=== PATIENT | male | born 1945 | race Caucasian/White ===

== ENCOUNTER 2016-03-07 16:56 | Inpatient (IN) | payer OTHER ==
[~2016-03-07] VITALS: Ht 167.6 cm; Wt 115.5 kg
[~2016-03-07 16:56] MED LIST: AMLO-114 PO; ASPEC325 PO; ATEN50TA8 PO; GLC500 PO; LISI-729 PO; MOME100A INH; OMEG10007 PO; PANT40TA PO; SIMV20TA2 PO; TIOTCAP INH
[2016-03-07 17:09] VITALS: Ht 167.6 cm; Wt 115.5 kg
[2016-03-07] MEDS ORDERED: ALBUT/IPRATROP 3MG/0.5MG NEB 3 ML VIAL INH STA (18:21)
--- NOTE | 2016-03-07 18:41 | DIAGNOSTIC IMAGING REPORT ---
CHEST ONE VIEW PORTABLE HISTORY: Atypical CHEST PAIN COMPARISON: Chest 10/07/2013. FINDINGS: There are low lung volumes. This remains unchanged. No pleural effusions. No pneumothorax. No new focal lung consolidations. The heart remains mildly enlarged. Hazy appearance the left lung base remains stable. This may be due to prominent mediastinal fat or scarring. Mild apical predominant emphysematous changes. IMPRESSION: No significant change compared to the prior study. No acute process. Stable cardiomegaly. Electronically signed by: Frederick Tran M.D. 03/07/2016 6:39 PM
--- NOTE | 2016-03-07 18:45 | EMERGENCY ROOM VISIT NOTE ---
History Report prepared by Heather: Subhash Santiago Under the Supervision of: Dr. Reginald Braun M.D. First contact with patient: 18:11 Chief Complaint: RESPIRATORY PROBLEMS Stated Complaint: SOB Nursing Triage Summary: SOB, sent by a ALLISON from [place] for low 02 sats. Denies resp history. Cough. History of Present Illness The patient is a 70 year old male who presents to the Emergency Room with complaints of persistent shortness of breath beginning a few weeks ago. He states that his shortness of breath is worsened with exertion and improved with supplemental oxygen. He has no history of respiratory problems. The patient denies any chest pain, fevers, chills, black or bloody stool, or cough. He states that he was found to have a blood oxygen saturation in the 80's in the office today. He notes that he currently has a stomach ulcer. He states that he has been using inhalers at home. The patient has a history of bladder cancer, a previous SD, and has an urostomy in place. He states that he is currently cancer free. He had his prostate, and bladder removed due to the cancer. The patient denies any recent falls or trauma. Source of History: patient, spouse/significant other Onset: A few weeks ago Quality: other (shortness of breath) Timing: other (persistent) Modifying Factors (Worsening): exertion Modifying Factors (Relieving): other (supplemental oxygen) Associated Symptoms: No chest pain, No chills, No cough, No fevers, No hematochezia, No melena Review of Systems See HPI for pertinent positives & negatives. A total of 10 systems reviewed and were otherwise negative. Past Medical & Surgical Medical Problems: (1) Bladder cancer (2) HTN (hypertension) (3) Myocardial infarction Surgical Problems: (1) History of urostomy Old medical records were reviewed. Nurse's notes were reviewed and I agree with. Family History No pertinent family history stated. Social History Smoking Status: Former Smoker Drug Use: none Marital Status: Occupation Status: retired Current/Historical Medications Scheduled Amlodipine (Norvasc), 10 MG PO QAM Aspirin (Aspirin *), 325 MG PO QAM Atenolol (Tenormin), 50 MG PO QAM Fish Oil ([place]-3), 4 CAP PO QAM Lisinopril (Zestril), 5 MG PO QAM Metformin Hcl (Glucophage *), 500 MG PO BIDM Pantoprazole (Protonix), 40 MG PO DAILY Simvastatin (Zocor), 20 MG PO QPM Tiotropium [place] (Spiriva Handihaler), 1 CAP INH QAM Scheduled PRN Mometasone Furoate-Formoterol (Dulera 100/5 Mcg), 2 PUFFS INH BID PRN for Shortness of Breath Allergies Coded Allergies: Iodinated Diagnostic Agents (Verified Allergy, Mild, itching in groin area , 03/07/16) Penicillins (Verified Adverse Reaction, Unknown, OUT OF IT, 03/07/16) Physical Exam Vital Signs Date Time Temp Pulse Resp B/P Pulse Ox O2 Delivery O2 Flow Rate FiO2 03/07/16 20:04 64 18 131/66 95 Nasal Cannula 2.0 03/07/16 17:13 Nasal Cannula 2.0 03/07/16 17:12 88 Room Air 03/07/16 17:09 37.0 59 18 135/73 88 Room Air Physical Exam General: Well developed, well nourished, non-ill appearing older male in no acute distress, breathing comfortably on room air. Normal speech HEENT: Normal cephalic atraumatic. Pupils are equal round and reactive to light. Extraocular movements are intact. Oropharynx is pink with moist mucous membranes. No swelling of the mouth lips or tongue. Neck: Supple with a midline trachea. No meningeal signs or stiffness, no JVD or bruits. No Stridor. Chest: Clear to auscultation bilaterally. No wheezes or rhonchi. No increased work of breathing. Heart: regular rate and rhythm. Abdomen: Soft nontender, nondistended without rebound guarding or rigidity. Urinary ostomy in place. Extremities: No cyanosis or clubbing. No calf tenderness or assymetry. Trace to 1+ lower extremity edema bilaterally. Spine/Back. Non tender to palpation. No CVA tenderness Skin: Good turgor without rashes. Neurologic exam: Cranial nerves two through 12 are intact. Motor and sensation are intact and symmetrical throughout. Medical Decision & Procedures ER Provider Diagnostic Interpretation: X ray results as stated below per my interpretation and radiologist interpretation. Other radiology results as stated below per my review and radiologist interpretation: CHEST ONE VIEW PORTABLE FINDINGS: There are low lung volumes. This remains unchanged. No pleural effusions. No pneumothorax. No new focal lung consolidations. The heart remains mildly enlarged. Hazy appearance the left lung base remains stable. This may be due to prominent mediastinal fat or scarring. Mild apical predominant emphysematous changes. IMPRESSION: No significant change compared to the prior study. No acute process. Stable cardiomegaly. Electronically signed by: Frederick Tran M.D. MY IMPRESSION: Cardiomegaly, chronic change. No acute infiltrate, failure or pneumothorax. CHEST CTA for PULMONARY ARTERIES FINDINGS: There is a normal caliber thoracic aorta with no evidence for dissection. There is no evidence for pulmonary embolus. Mild mediastinal and right hilar lymphadenopathy has slightly progressed. Dominant right peritracheal lymph node measures 2.4 x 1.4 cm. No pleural or pericardial effusions. The heart is borderline enlarged. The visualized liver and spleen are unremarkable. The central airways are patent. No pneumothorax. Moderate emphysema. A 5 mm indeterminate pulmonary nodule within the left upper lobe on image 158. Mild interstitial thickening within the lungs most prominent within the lung bases. Patchy densities at the base of the bilateral lower lobes may represent dependent change or progressive interstitial thickening. IMPRESSION: 1. No evidence for pulmonary embolus. 2. Moderate emphysema. 3. Progressive interstitial thickening within the lungs most pronounced at the lung bases. There is also patchy densities at the bases of the bilateral lower lobes. This favors progressive chronic interstitial change/fibrosis. An atypical pneumonitis could also have a similar appearance but is considered less likely. 4. A 5 mm indeterminate pulmonary nodule within the left upper lobe. Please refer to the chart below for recommended follow-up. 6. Mild mediastinal and right hilar lymphadenopathy which has progressed. This is nonspecific but could be reactive or represent a lymphoproliferative disorder. Follow-up is recommended to ensure resolution. Please refer to below summary of Fleischner criteria recommendations for follow-up of incidental CT nodules (Gerald Hall, Guidelines for management of small pulmonary nodules detected on CT scans: A statement from the Fleischner Society, Radiology 237: [phone].) Low Risk Patient: Minimal or no smoking or other known risk factors for malignancy <=4 mm: No follow-up needed. >4-6 mm: Initial follow-up CT at 12 months; if unchanged, no further follow-up. >6-8 mm: Initial follow-up CT at 6-12 months then at 18-24 months if no change. >8 mm: Follow-up CT at \R\3, 9, 24 months, or PET and/or biopsy. High Risk Patient: History of smoking or other known risk factors <=4 mm: Follow-up at 12 months; if unchanged, no further follow-up. >4-6 mm: Initial follow-up CT at 6-12 months then at 18-24 months if no change. >6-8 mm: Initial follow-up CT at 3-6 months then at 9-12 and 24 months if no change. >8 mm: Same as low risk patient. Note: Nodule size measured as average of length and width. Ground glass or partly solid nodules may require longer follow-up to exclude indolent adenocarcinoma. Electronically signed by: Frederick Tran M.D. Laboratory Results 03/07/16 19:30 Red Blood Count 4.38, Mean Corpuscular Volume 83.6, Mean Corpuscular Hemoglobin 25.6, Mean Corpuscular Hemoglobin Concent 30.6, Mean Platelet Volume 9.3, Neutrophils (%) (Auto) 75.9, Lymphocytes (%) (Auto) 15.1, Monocytes (%) (Auto) 6.7, Eosinophils (%) (Auto) 1.7, Basophils (%) (Auto) 0.4, Neutrophils # (Auto) 6.08, Lymphocytes # (Auto) 1.21, Monocytes # (Auto) 0.54, Eosinophils # (Auto) 0.14, Basophils # (Auto) 0.03 03/07/16 19:30 Test 03/07/16 19:30 03/07/16 19:38 03/07/16 19:41 White Blood Count 8.02 K/uL (4.8-10.8) Red Blood Count 4.38 M/uL (4.7-6.1) Hemoglobin 11.2 g/dL (14.0-18.0) Hematocrit 36.6 % (42-52) Mean Corpuscular Volume 83.6 fL (80-100) Mean Corpuscular Hemoglobin 25.6 pg (25-34) Mean Corpuscular Hemoglobin Concent 30.6 g/dl (32-36) Platelet Count 270 K/uL (130-400) Mean Platelet Volume 9.3 fL (7.4-10.4) Neutrophils (%) (Auto) 75.9 % Lymphocytes (%) (Auto) 15.1 % Monocytes (%) (Auto) 6.7 % Eosinophils (%) (Auto) 1.7 % Basophils (%) (Auto) 0.4 % Neutrophils # (Auto) 6.08 K/uL (1.4-6.5) Lymphocytes # (Auto) 1.21 K/uL (1.2-3.4) Monocytes # (Auto) 0.54 K/uL (0.11-0.59) Eosinophils # (Auto) 0.14 K/uL (0-0.5) Basophils # (Auto) 0.03 K/uL (0-0.2) RDW Standard Deviation 47.3 fL (36.4-46.3) RDW Coefficient of Variation 15.5 % (11.5-14.5) Immature Granulocyte % (Auto) 0.2 % Immature Granulocyte # (Auto) 0.02 K/uL (0.00-0.02) Prothrombin Time 10.7 SECONDS (9.0-12.0) Prothromb Time International Ratio 1.0 (0.9-1.1) Activated Partial Thromboplast Time 26.9 SECONDS (21.0-31.0) Partial Thromboplastin Ratio 1.0 Est Creatinine Clear Calc Drug Dose 63.0 ml/min Estimated GFR () 64.1 Estimated GFR (Non- 55.3 BUN/Creatinine Ratio 12.1 (10-20) Calcium Level 8.6 mg/dl (8.5-10.1) Total Bilirubin 1.3 mg/dl (0.2-1) Direct Bilirubin 0.2 mg/dl (0-0.2) Aspartate Amino Transf (AST/SGOT) 23 U/L (15-37) Alanine Aminotransferase (ALT/SGPT) 17 U/L (12-78) Alkaline Phosphatase 86 U/L (45-117) Total Creatine Kinase 61 U/L (39-308) Creatine Kinase MB < 0.5 ng/ml (0.5-3.6) Creatine Kinase MB Ratio (0-3.0) Total Protein 7.1 gm/dl (6.4-8.2) Albumin 3.3 gm/dl (3.4-5.0) Lipase 120 U/L (73-393) Bedside Hemoglobin 12.6 g/dl (14.0-18.0) Bedside Hematocrit 37 % (42-52) Bedside Sodium 144 mEq/L (135-144) Bedside Potassium 3.9 mEq/L (3.3-5.0) Bedside Chloride 105 mEq/L (101-112) Bedside Total CO2 23 mEq/l (24-31) Anion Gap 21.0 mmol/L (16-25) Bedside Blood Urea Nitrogen 14 mg/dl (7-18) Bedside Creatinine 1.2 mg/dl (0.6-1.3) Bedside Glucose (other) 96 mg/dl (70-99) Bedside Ionized Calcium (Eduard) 1.15 mmol/l (1.12-1.32) Bedside D-Dimer > 450 ng/mlFEU (0-450) Bedside Troponin I 0.000 ng/ml (0-0.045) UO-Ddz-K-Type Natriuretic Peptide 284 pg/ml (0-900) Laboratory studies as stated above per my review. Medications Administered Medications (Trade) Dose Ordered Sig/Priyanka Route Start Time Stop Time Status Last Admin Dose Admin Albuterol/ Ipratropium (Duoneb) 3 ml NOW STAT INH 03/07/16 18:21 03/07/16 18:24 DC 03/07/16 18:29 3 ML ECG Indication: SOB/dyspnea Rate (beats per minute): 60 Rhythm: normal sinus Findings: nonspecific-ST abn, other (no arrhythmia) Comparison ECG Date: August 05, 2007 Change: Non-specific ST abnormality is new. ED Course 1811: Past medical records reviewed. The patient was evaluated in room C6, and a complete history and physical examination were performed. 1820: Ordered DuoNeb 3 mL INH. 1904: Ordered Benadryl Inj 25 mg IV, Solu-Medrol 40 mg IM. 1930: Upon reevaluation, the patient is resting comfortably. I discussed the results and treatment plan with the patient. He verbalized agreement of the treatment plan. The patient will be evaluated for further management. 2049: I checked in on the patient. He just received his CT without difficulty. Medical Decision Differentials include, but are not limited to; COPD exacerbation, pneumonia, CHF , PE, anemia, and electrolyte or metabolic abnormality. This patient comes in as described above. He was placed in room C6. Here for treatment and evaluation of shortness of breath. This is been getting increasingly worse over quite some time now. He was noted be hypoxemic in the office. He does use inhalers. He looks fine at present and his lungs are clear. He was noted be hypoxemic was placed on oxygen. Chest x-ray was unremarkable. EKG does not suggest any significant arrhythmia or acute ischemic changes. He has no significant electrode or metabolic abnormalities. I did a chest CT there was no evidence of PE. There is likely interstitial lung disease no definite infiltrate. I do think he needs to be admitted for further treatment and evaluations hypoxemia this may be infectious as well. Cultures have been obtained. Of note, he did have a possible contrast allergy however did well with the IV contrast and had no reaction. I did consult the [facility] hospitalist and they saw him and will admit him for these measures Consults Time Called: 1924 Consulting Physician: Dr. Yost [place] [place] Returned Call: 1930 I discussed the patient's case with Dr. Yost. The patient will be evaluated for further management. Impression Primary Impression: Shortness of breath Additional Impression: COPD exacerbation Scribe Attestation The scribe's documentation has been prepared under my direction and personally reviewed by me in its entirety. I confirm that the note above accurately reflects all work, treatment, procedures, and medical decision making performed by me. Departure Information Dispostion Being Evaluated By Hospitalist Referrals Harris Quiñonez M.D. (PCP) Patient Instructions A Signature Page, My [facility]
[2016-03-07] MEDS ORDERED: DiphenhydrAMINE HCL 50 MG/ML VIAL IV STA (19:05)
[2016-03-07] MEDS ORDERED: OPTIRAY 320 IV PRN (19:30)
[2016-03-07 19:46] LABS: BASO % 0.4 %; BASO ABS # 0.03 K/uL (0-0.2); COMPLETE YES; EOS % 1.7 %; HEMATOCRIT 36.6 % (42-52); IG% 0.2 %; LYMPH % 15.1 %; LYMPH ABS # 1.21 K/uL (1.2-3.4); MEAN CELL VOLUME 83.6 fL (80-100); MEAN CORPUSCULAR HEMOGLOBIN 25.6 pg (25-34); MEAN CORPUSCULAR HGB CONC 30.6 g/dl (32-36); MEAN PLATELET VOLUME 9.3 fL (7.4-10.4); MONO % 6.7 %; NEUT % 75.9 %; PLATELET COUNT 270 K/uL (130-400); RED BLOOD COUNT 4.38 M/uL (4.7-6.1); WHITE BLOOD COUNT 8.02 K/uL (4.8-10.8)
[2016-03-07 20:03] LABS: BUN/CREATININE RATIO 12.1 (10-20); CALCIUM 8.6 mg/dl (8.5-10.1); CREATININE 1.3 mg/dl (0.60-1.40)
[2016-03-07 20:04] LABS: POINT OF CARE PRO-BNP 284 pg/ml (0-900)
[2016-03-07 20:05] LABS: PROTHROMBIN TIME (PATIENT) 10.7 SECONDS (9.0-12.0)
[2016-03-07 20:09] LABS: ALKALINE PHOSPHATASE 86 U/L (45-117); ALT/SGPT 17 U/L (12-78); AST/SGOT 23 U/L (15-37)
[2016-03-07 20:16] LABS: ISTAT CREATININE 1.2 mg/dl (0.6-1.3); ISTAT HEMOGLOBIN 12.6 g/dl (14.0-18.0); ISTAT IONIZED CALCIUM 1.15 mmol/l (1.12-1.32)
[2016-03-07] MEDS ORDERED: POLYETHYLENE (MIRALAX) 17 GM PACK PO PRN (20:30)
[2016-03-07] MEDS ORDERED: ALUMINUM/MAGNESIUM/SIMETH (MAALOX MAX) 30 ML UDC PO PRN (20:30)
[2016-03-07] MEDS ORDERED: MoRPHine SULFATE 2 MG/ML CARP IV PRN (20:30)
[2016-03-07] MEDS ORDERED: ONDANSETRON INJ 2 MG/ML 2 ML VIAL IV PRN (20:30)
[2016-03-07] MEDS ORDERED: MAGNESIUM HYDROXIDE SUSP 30 ML UDC PO PRN (20:30)
[2016-03-07] MEDS ORDERED: ALBUTEROL 0.083% NEBU SOLN 3 ML VIAL INH PRN (20:30)
--- NOTE | 2016-03-07 20:50 | History and Physical ---
History & Physical Date & Time of Service: Mar 07, 2016 at 20:30 Chief Complaint: SOB Primary Care Physician: Harris Quiñonez M.D. History of Present Illness Source: patient 70 y/o M likely Hx of COPD presenting with a cough, wheezing and progressive SOB x 5 days. He denies a fever at home, denies CP, N/V, diarrhea or dysuria. His 02 sat was in the mid 80s on arrival to the ER - he does not use home 02. The pt is not aware of a diagnosis of COPD but is taking related meds and imaging is consistent with emphysema. 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 Social History Pt quit smoking following an NM in 1998 - pack year Hx Smoking Status: Former Smoker Alcohol Use: occasionally Marital Status: Occupational Status: retired Immunizations History of Influenza Vaccine: No History of Tetanus Vaccine?: No History of Pneumococcal: No History of Hepatitis B Vaccine: No Multi-Drug Resistant Organisms History of MDRO: No Allergies Coded Allergies: Iodinated Diagnostic Agents (Verified Allergy, Mild, itching in groin area , 03/07/16) Penicillins (Verified Adverse Reaction, Unknown, OUT OF IT, 03/07/16) Home Medications Scheduled Amlodipine (Norvasc), 10 MG PO QAM Aspirin (Aspirin *), 325 MG PO QAM Atenolol (Tenormin), 50 MG PO QAM Fish Oil ([place]-3), 4 CAP PO QAM Lisinopril (Zestril), 5 MG PO QAM Metformin Hcl (Glucophage *), 500 MG PO BIDM Pantoprazole (Protonix), 40 MG PO DAILY Simvastatin (Zocor), 20 MG PO QPM Tiotropium [place] (Spiriva Handihaler), 1 CAP INH QAM Scheduled PRN Mometasone Furoate-Formoterol (Dulera 100/5 Mcg), 2 PUFFS INH BID PRN for Shortness of Breath Review of Systems Constitutional: No chills, No fever, No sweats Eyes: No worsening of vision ENT: No hearing loss, No nasal symptoms, No unusual epistaxis Respiratory: + cough, + dyspnea at rest, + dyspnea on exertion, + shortness of breath, + wheezing, No sputum Cardiovascular: No PND, No chest pain, No orthopnea Abdomen: No nausea, No pain, No vomiting Musculoskeletal: No joint pain Genitourinary - Male: No dysuria, No hematuria, No urinary frequency Neurologic: No memory loss, No paralysis, No weakness Psychiatric: No depression symptoms Endocrine: No fatigue Hematologic / Lymphatic: No abnormal bleeding/bruising Integumentary: No rash Allergic / Immunologic: No environmental allergies Physical Exam Vital Signs Date Time Temp Pulse Resp B/P Pulse Ox O2 Delivery O2 Flow Rate FiO2 03/07/16 20:04 64 18 131/66 95 Nasal Cannula 2.0 03/07/16 17:13 Nasal Cannula 2.0 03/07/16 17:12 88 Room Air 03/07/16 17:09 37.0 59 18 135/73 88 Room Air General Appearance: WD/WN, no apparent distress Head: normocephalic, atraumatic Eyes: normal inspection ENT: normal ENT inspection, pharynx normal Neck: supple, no JVD Respiratory/Chest: chest non-tender, no respiratory distress, no accessory muscle use, + decreased breath sounds, + wheezing Cardiovascular: regular rate, rhythm, no edema, no gallop, no JVD, no murmur, normal peripheral pulses Abdomen/GI: normal bowel sounds, non tender, soft, + pertinent finding ( Urostomy present - no surrounding inflammation) Back: normal inspection, no CVA tenderness Extremities/Musculoskelatal: normal inspection, no calf tenderness, normal capillary refill, no pedal edema, normal range of motion Neurologic/Psych: chancery clerk II-XII nml as tested, no motor/sensory deficits, alert, normal mood/affect, normal reflexes, oriented x 3 Skin: normal color, warm/dry, no rash Diagnostics Laboratory Results Results Past 24 Hours Test 03/07/16 19:30 03/07/16 19:38 03/07/16 19:41 Range/Units White Blood Count 8.02 4.8-10.8 K/uL Red Blood Count 4.38 4.7-6.1 M/uL Hemoglobin 11.2 14.0-18.0 g/dL Hematocrit 36.6 42-52 % Mean Corpuscular Volume 83.6 80-100 fL Mean Corpuscular Hemoglobin 25.6 25-34 pg Mean Corpuscular Hemoglobin Concent 30.6 32-36 g/dl Platelet Count 270 130-400 K/uL Mean Platelet Volume 9.3 7.4-10.4 fL Neutrophils (%) (Auto) 75.9 % Lymphocytes (%) (Auto) 15.1 % Monocytes (%) (Auto) 6.7 % Eosinophils (%) (Auto) 1.7 % Basophils (%) (Auto) 0.4 % Neutrophils # (Auto) 6.08 1.4-6.5 K/uL Lymphocytes # (Auto) 1.21 1.2-3.4 K/uL Monocytes # (Auto) 0.54 0.11-0.59 K/uL Eosinophils # (Auto) 0.14 0-0.5 K/uL Basophils # (Auto) 0.03 0-0.2 K/uL RDW Standard Deviation 47.3 36.4-46.3 fL RDW Coefficient of Variation 15.5 11.5-14.5 % Immature Granulocyte % (Auto) 0.2 % Immature Granulocyte # (Auto) 0.02 0.00-0.02 K/uL Prothrombin Time 10.7 9.0-12.0 SECONDS Prothromb Time International Ratio 1.0 0.9-1.1 Activated Partial Thromboplast Time 26.9 21.0-31.0 SECONDS Partial Thromboplastin Ratio 1.0 Sodium Level 144 136-145 mmol/L Potassium Level 4.0 3.5-5.1 mmol/L Chloride Level 107 98-107 mmol/L Carbon Dioxide Level 26 21-32 mmol/L Anion Gap 11.0 21.0 16-25 mmol/L Blood Urea Nitrogen 16 7-18 mg/dl Creatinine 1.30 0.60-1.40 mg/dl Est Creatinine Clear Calc Drug Dose 63.0 ml/min Estimated GFR () 64.1 Estimated GFR (Non- 55.3 BUN/Creatinine Ratio 12.1 10-20 Random Glucose 95 70-99 mg/dl Calcium Level 8.6 8.5-10.1 mg/dl Total Bilirubin 1.3 0.2-1 mg/dl Direct Bilirubin 0.2 0-0.2 mg/dl Aspartate Amino Transf (AST/SGOT) 23 15-37 U/L Alanine Aminotransferase (ALT/SGPT) 17 12-78 U/L Alkaline Phosphatase 86 45-117 U/L Total Creatine Kinase 61 39-308 U/L Creatine Kinase MB < 0.5 0.5-3.6 ng/ml Creatine Kinase MB Ratio 0-3.0 Total Protein 7.1 6.4-8.2 gm/dl Albumin 3.3 3.4-5.0 gm/dl Lipase 120 73-393 U/L Bedside Hemoglobin 12.6 14.0-18.0 g/dl Bedside Hematocrit 37 42-52 % Bedside Sodium 144 135-144 mEq/L Bedside Potassium 3.9 3.3-5.0 mEq/L Bedside Chloride 105 101-112 mEq/L Bedside Total CO2 23 24-31 mEq/l Bedside Blood Urea Nitrogen 14 7-18 mg/dl Bedside Creatinine 1.2 0.6-1.3 mg/dl Bedside Glucose (other) 96 70-99 mg/dl Bedside Ionized Calcium (Eduard) 1.15 1.12-1.32 mmol/l Bedside D-Dimer > 450 0-450 ng/mlFEU Bedside Troponin I 0.000 0-0.045 ng/ml WQ-Jdx-H-Type Natriuretic Peptide 284 0-900 pg/ml Diagnostic Radiology CXR consistent with reduced lung volumes and central emphysema - unchanged from previous Impression Assessment and Plan 70 y/o M likely Hx of COPD presenting with a cough, wheezing and progressive SOB x 5 days. He denies a fever at home, denies CP, N/V, diarrhea or dysuria. His 02 sat was in the mid 80s on arrival to the ER - he does not use home 02. The pt is not aware of a diagnosis of COPD but is taking related meds and imaging is consistent with emphysema. 1) COPD exacerbation - Pt will be treated with Dounebs/PRN Albuterol, Abx, Solumedrol and an 02 protocol - there was some concern for A PE initially althoigh he is not tachycardic and pretest probability is low - would hold off unless symptoms worsen 2) Type 2 DM - placed on sliding scale due to steroid use - Metformin held 3) HTN - cont Norvasc 4) CAD - cont ASA, [place] 3s - no evidence of ACS - presumably pt is statin intolerant 5) Bladder CA - urostomy present - functional - no evidence of infection 6) PUD - cont Omeprazole - he is anemis so SCDs will be used for prophylaxis initially Full code Total time for this admit inc chart review, med rec - discussion with ER MD and pt/family - review of labs/imaging - 35min Level of Care Telemetry Resuscitation Status FULL RESUSCITATION VTE Prophylaxis VTE Risk Assessment Done? Y/N: Yes Risk Level: Moderate Given or contraindicated: SCD's
[2016-03-07] MEDS ORDERED: DEXTROSE 50% 50 ML SYR IV PRN (21:00)
[2016-03-07] MEDS ORDERED: GLUCOSE 10 TABS/TUBE PO PRN (21:00)
[2016-03-07] MEDS ORDERED: GLUCAGON FOR INJ 1 MG VIAL SQ PRN (21:00)
[2016-03-07] MEDS: ALBUT/IPRATROP 3MG/0.5MG NEB 3 ML VIAL INH SCH (21:00)
[2016-03-07] MEDS ORDERED: GLUCOSE 40% GEL 15 GM TUBE PO PRN (21:00)
--- NOTE | 2016-03-07 21:17 | DIAGNOSTIC IMAGING REPORT ---
CHEST CTA for PULMONARY ARTERIES CT DOSE: 614.30 mGy.cm HISTORY: Atypical chest pain. TECHNIQUE: Multiaxial CT images of the chest were performed following the intravenous administration of contrast to evaluate the pulmonary arteries. Maximal intensity projection images were also obtained. COMPARISON STUDY: Chest CT outside hospital 05/23/2012. FINDINGS: There is a normal caliber thoracic aorta with no evidence for dissection. There is no evidence for pulmonary embolus. Mild mediastinal and right hilar lymphadenopathy has slightly progressed. Dominant right peritracheal lymph node measures 2.4 x 1.4 cm. No pleural or pericardial effusions. The heart is borderline enlarged. The visualized liver and spleen are unremarkable. The central airways are patent. No pneumothorax. Moderate emphysema. A 5 mm indeterminate pulmonary nodule within the left upper lobe on image 158. Mild interstitial thickening within the lungs most prominent within the lung bases. Patchy densities at the base of the bilateral lower lobes may represent dependent change or progressive interstitial thickening. IMPRESSION: 1. No evidence for pulmonary embolus. 2. Moderate emphysema. 3. Progressive interstitial thickening within the lungs most pronounced at the lung bases. There is also patchy densities at the bases of the bilateral lower lobes. This favors progressive chronic interstitial change/fibrosis. An atypical pneumonitis could also have a similar appearance but is considered less likely. 4. A 5 mm indeterminate pulmonary nodule within the left upper lobe. Please refer to the chart below for recommended follow-up. 6. Mild mediastinal and right hilar lymphadenopathy which has progressed. This is nonspecific but could be reactive or represent a lymphoproliferative disorder. Follow-up is recommended to ensure resolution. Please refer to below summary of Fleischner criteria recommendations for follow-up of incidental CT nodules (Gerald Hall, Guidelines for management of small pulmonary nodules detected on CT scans: A statement from the Fleischner Society, Radiology 237: [phone].) Low Risk Patient: Minimal or no smoking or other known risk factors for malignancy <=4 mm: No follow-up needed. >4-6 mm: Initial follow-up CT at 12 months; if unchanged, no further follow-up. >6-8 mm: Initial follow-up CT at 6-12 months then at 18-24 months if no change. >8 mm: Follow-up CT at \R\3, 9, 24 months, or PET and/or biopsy. High Risk Patient: History of smoking or other known risk factors <=4 mm: Follow-up at 12 months; if unchanged, no further follow-up. >4-6 mm: Initial follow-up CT at 6-12 months then at 18-24 months if no change. >6-8 mm: Initial follow-up CT at 3-6 months then at 9-12 and 24 months if no change. >8 mm: Same as low risk patient. Note: Nodule size measured as average of length and width. Ground glass or partly solid nodules may require longer follow-up to exclude indolent adenocarcinoma. Electronically signed by: Frederick Tran M.D. 03/07/2016 9:15 PM
[2016-03-07] MEDS: INSULIN ASPART 100 UNITS/ML 3 ML PEN SC SCH (23:09)
[2016-03-07] MEDS: SIMVASTATIN 20 MG TAB PO SCH (23:18)
[2016-03-07] MEDS: AZITHROMYCIN IV 250 MG in DEXTROSE 5% 250ML 250 ML IV SCH (23:32)
[2016-03-07] MEDS: METHYLPREDNISOLONE IV 60 MG in SYRINGE 0 ML IV SCH (23:33)
[2016-03-08] VITALS (12 sets, daily range): BP systolic 106–152; BP diastolic 52–81; PULSE 62–91; TEMP 36.3–36.9; O2SAT 90–96
[2016-03-08] MEDS: ALBUT/IPRATROP 3MG/0.5MG NEB 3 ML VIAL INH SCH ×4 (03:00→21:19)
[2016-03-08] MEDS: METHYLPREDNISOLONE IV 60 MG in SYRINGE 0 ML IV SCH ×3 (04:07→17:21)
--- NOTE | 2016-03-08 08:34 | Clinical Documentation Query ---
CARA Ortega : CLINICAL DOCUMENTATION QUERY Patient is a 70 year old male admitted secondary to a COPD exacerbation. BMI noted per nursing documentation to be 40.5 kg/m*m. This can be captured by the professional surgical coder only if the condition associated with it is explicitly documented by the provider. As appropriate, please consider documentation as suggested below to capture this important clinical data. In your clinical opinion is this patient being managed for: (x ) Obesity with BMI of 40.5 kg/m*m ( ) Other explanation of clinical findings (Please Explain) ( ) Unable to determine (Please Define) ( ) Need to Discuss ( ) Not Agree The medical record reflects the following clinical findings, treatment, and risk factors. Clinical Indicators: As above Treatment: AHA, Diabetic diet Risk Factors: Age, diet, physical activity levels Clarification - BMI ReportingCoding Clinic [id number], [id number]:There has been some confusion as to whether nursing staff documentation is acceptable for assigning BMI. Since hospitals are allowed to code the BMI based on the curbstone setter's documentation, it would seem reasonable to assign the BMI based on the nurse's documentation as well. Can coders use nursing documentation to assign the BMI? Answer:Yes, the BMI can be assigned based on medical record documentation from clinicians, including nurses and dieticians who are not the patient's provider. As stated in the Official Guidelines for Coding and Reporting, BMI code assignment may be based on medical record documentation from clinicians who are not the patient's provider, since this information is typically documented by other clinicians involved in the care of the patient. Dieticians were only mentioned as an example of a clinician that might document BMI information. However, the associated diagnosis (such as overweight, obesity, or underweight) must be documented by the provider. Please clarify and document your clinical opinion in the progress notes and discharge summary. Terms such as "probable", "suspected", "likely", "questionable", "possible", or "still to be ruled out" are acceptable. IF IN AGREEMENT, YOU MUST DOCUMENT ABOVE DIAGNOSTIC STATEMENT IN DAILY PROGRESS NOTES AND DISCHARGE SUMMARY. This document is not part of the patient's record. Thank You, Reginald Barrett, RN [phone]
[2016-03-08] MEDS: AMLODIPINE BESYLATE 5 MG TAB PO SCH (08:35)
[2016-03-08] MEDS: LISINOPRIL 5 MG TAB PO SCH (08:35)
[2016-03-08] MEDS: OMEGA-3 (PURIFIED FISH OIL) 1 GM CAP PO SCH (08:36)
[2016-03-08] MEDS: PANTOprazole SOD 40 MG TAB PO SCH (08:36)
[2016-03-08] MEDS: ASPIRIN 325 MG ECTAB PO SCH (08:36)
[2016-03-08] MEDS: INSULIN ASPART 100 UNITS/ML 3 ML PEN SC SCH ×4 (08:39→21:19)
--- NOTE | 2016-03-08 12:32 | Progress Note ---
Subjective Date of Service: Mar 08, 2016. Subjective Pt evaluation today including: conversation w/ patient, conversation w/ family , physical exam, chart review, lab review, review of studies, review of inpatient medication list Voiding: no voiding problems Sitting up in best side, cough difficult breathing, which is improving Still have some wheezing Problem List Medical Problems: (1) COPD exacerbation Status: Acute (2) Shortness of breath Status: Acute Review of Systems Constitutional: + fatigue, + weakness, No chills, No fever, No problem reported , No sweats, No weight loss Eyes: No diplopia, No discharge, No eye pain, No redness, No worsening of vision ENT: No dental problems, No hearing loss, No nasal symptoms, No sore throat, No tinnitus, No trouble swallowing, No unusual epistaxis Respiratory: + cough, + wheezing, No dyspnea at rest, No dyspnea on exertion, No hemoptysis, No shortness of breath, No sputum Cardiac: No PND, No chest pain, No claudication, No edema, No orthopnea, No palpitations Abdomen: No constipation, No diarrhea, No nausea, No pain, No vomiting Musculoskeletal: No calf pain, No joint pain, No muscle pain, No swelling Male : No dysuria, No hematuria, No incontinence, No nocturia more than once/ night, No slowing stream, No urinary frequency Neurologic: No balance problems, No memory loss, No numbness/tingling, No paralysis, No vertigo, No weakness Psychiatric: No anhedonism, No anxiety, No depression symptoms, No insomnia, No substance abuse Heme: No abnormal bleeding/bruising, No clotting problems, No night sweats, No swollen lymph nodes Endo: No excessive thirst, No excessive urination, No fatigue Skin: No bleeding, No color change, No itch, No new/changing skin lesions, No rash Objective Vital Signs Date Time Temp Pulse Resp B/P Pulse Ox O2 Delivery O2 Flow Rate FiO2 03/08/16 11:31 36.3 86 18 115/63 93 Nasal Cannula 2.0 03/08/16 08:00 Nasal Cannula 2.0 03/08/16 07:46 36.7 80 18 136/68 90 Nasal Cannula 2.0 03/08/16 07:32 78 16 91 Nasal Cannula 2.0 03/08/16 04:57 36.7 80 18 130/52 92 03/08/16 04:00 Nasal Cannula 2.0 03/08/16 03:00 72 16 90 Nasal Cannula 2.0 03/08/16 00:28 36.6 62 20 152/81 94 Nasal Cannula 2.0 03/08/16 00:00 Nasal Cannula 2.0 03/07/16 22:10 Nasal Cannula 3.0 03/07/16 22:09 69 18 135/82 93 03/07/16 21:04 69 18 125/73 92 Nasal Cannula 3.0 03/07/16 20:04 64 18 131/66 95 Nasal Cannula 2.0 03/07/16 17:13 Nasal Cannula 2.0 03/07/16 17:12 88 Room Air 03/07/16 17:09 37.0 59 18 135/73 88 Room Air Physical Exam General Appearance: WD/WN, no apparent distress, + obese Eyes: normal inspection, PERRL, EOMI, sclerae normal ENT: normal ENT inspection, hearing grossly normal, pharynx normal Neck: supple, no adenopathy, thyroid normal, no JVD, no carotid bruits, trachea midline Respiratory/Chest: chest non-tender, normal breath sounds, no respiratory distress, no accessory muscle use, + decreased breath sounds (significant), + wheezing, + pertinent finding Cardiovascular: regular rate, rhythm, no edema, no gallop, no JVD, no murmur Abdomen: normal bowel sounds, non tender, soft, no organomegaly, no pulsatile mass Extremities: normal range of motion, non-tender, normal inspection, no pedal edema, no calf tenderness, normal capillary refill, pelvis stable 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, no motor/sensory deficits, alert, normal mood/affect, oriented x 3, + abnormal cerebellar tests Skin: normal color, warm/dry, no rash Lymphatic: no adenopathy Laboratory Results Last 24 Hours Test 03/07/16 19:30 03/07/16 19:38 03/07/16 19:41 03/07/16 23:08 White Blood Count 8.02 K/uL Red Blood Count 4.38 M/uL Hemoglobin 11.2 g/dL Hematocrit 36.6 % Mean Corpuscular Volume 83.6 fL Mean Corpuscular Hemoglobin 25.6 pg Mean Corpuscular Hemoglobin Concent 30.6 g/dl Platelet Count 270 K/uL Mean Platelet Volume 9.3 fL Neutrophils (%) (Auto) 75.9 % Lymphocytes (%) (Auto) 15.1 % Monocytes (%) (Auto) 6.7 % Eosinophils (%) (Auto) 1.7 % Basophils (%) (Auto) 0.4 % Neutrophils # (Auto) 6.08 K/uL Lymphocytes # (Auto) 1.21 K/uL Monocytes # (Auto) 0.54 K/uL Eosinophils # (Auto) 0.14 K/uL Basophils # (Auto) 0.03 K/uL RDW Standard Deviation 47.3 fL RDW Coefficient of Variation 15.5 % Immature Granulocyte % (Auto) 0.2 % Immature Granulocyte # (Auto) 0.02 K/uL Prothrombin Time 10.7 SECONDS Prothromb Time International Ratio 1.0 Activated Partial Thromboplast Time 26.9 SECONDS Partial Thromboplastin Ratio 1.0 Sodium Level 144 mmol/L Potassium Level 4.0 mmol/L Chloride Level 107 mmol/L Carbon Dioxide Level 26 mmol/L Anion Gap 11.0 mmol/L 21.0 mmol/L Blood Urea Nitrogen 16 mg/dl Creatinine 1.30 mg/dl Est Creatinine Clear Calc Drug Dose 63.0 ml/min Estimated GFR () 64.1 Estimated GFR (Non- 55.3 BUN/Creatinine Ratio 12.1 Random Glucose 95 mg/dl Calcium Level 8.6 mg/dl Total Bilirubin 1.3 mg/dl Direct Bilirubin 0.2 mg/dl Aspartate Amino Transf (AST/SGOT) 23 U/L Alanine Aminotransferase (ALT/SGPT) 17 U/L Alkaline Phosphatase 86 U/L Total Creatine Kinase 61 U/L Creatine Kinase MB < 0.5 ng/ml Creatine Kinase MB Ratio Total Protein 7.1 gm/dl Albumin 3.3 gm/dl Lipase 120 U/L Bedside Hemoglobin 12.6 g/dl Bedside Hematocrit 37 % Bedside Sodium 144 mEq/L Bedside Potassium 3.9 mEq/L Bedside Chloride 105 mEq/L Bedside Total CO2 23 mEq/l Bedside Blood Urea Nitrogen 14 mg/dl Bedside Creatinine 1.2 mg/dl Bedside Glucose (other) 96 mg/dl Bedside Ionized Calcium (Eduard) 1.15 mmol/l Bedside D-Dimer > 450 ng/mlFEU Bedside Troponin I 0.000 ng/ml AH-Chu-V-Type Natriuretic Peptide 284 pg/ml Bedside Glucose 121 mg/dl Test 03/08/16 07:32 03/08/16 11:45 Bedside Glucose 184 mg/dl 240 mg/dl Assessment and Plan 70 y/o M likely Hx of COPD presenting with a cough, wheezing and progressive SOB x 5 days. Admitted to hospital on 03/07/2016. He denies a fever at home, denies CP, N/V, diarrhea or dysuria. His 02 sat was in the mid 80s on arrival to the ER - he does not use home 02. The pt is not aware of a diagnosis of COPD but is taking related meds and imaging is consistent with emphysema. COPD exacerbation With history of tobacco abuse Continue with Dounebs/PRN Albuterol, Abx, Solumedrol and an 02 protocol there was some concern for A PE initially , Chest CT was done has rule out PE type 2 DM - placed on sliding scale due to steroid use - Metformin held HTN - cont Norvasc CAD - cont ASA, [place] 3s - no evidence of ACS - presumably pt is statin intolerant History of Bladder CA - urostomy present - functional - no evidence of infection History of PUD - cont Omeprazole - he is anemis so SCDs will be used for prophylaxis initially Obesity with BMI of 40.5 kg/m*m Patient's general condition is improving, will have pulmonary consultation, PTOT , Has counselling diet control and regular exercise and follow-up with PCP because of morbid obesity Continued [facility] stay due to: multiple IV medications needed Discharge planning: home
[2016-03-08 13:45] LABS: ESTIMATED AVERAGE GLUCOSE 131 mg/dl; HA1C FLAG Normal (Normal)
[2016-03-08] MEDS: ACETAMINOPHEN 325 MG TAB PO PRN (18:27)
[2016-03-08] MEDS: SIMVASTATIN 20 MG TAB PO SCH (19:58)
--- NOTE | 2016-03-08 20:59 | PULMONARY CONSULTATION ---
DATE OF CONSULTATION: 03/08/2016 TIME: 5:25 p.m. HISTORY OF PRESENT ILLNESS: The patient was seen in room 287. He is a 70-year-old male who was referred to the Emergency Room yesterday. He had seen Dane Hair PA-C in the pulmonary office [facility]. His oxygen saturations were quite low at that time. The patient has a history of emphysema and COPD. His breathing has been worse than usual for about 2 weeks. He does not really feel like a cold. He has some cough but it is about like his normal. Occasionally, he will bring up some sputum. It has been clear. There has been no hemoptysis or discolored mucus. He has not had any chest pains, chills, fevers or sweats. At home he was getting breathless just walking from room to room. He presented to the ER yesterday where he was admitted. Today, he is feeling significantly better. He and his actually walked in the hallway today. He thinks that the breathing treatments have helped a lot. Apparently he is moving his air a lot better. The patient has a history of COPD. I found pulmonary function testing done from 07/03/2012 which showed a moderately severe obstructive pattern. Diffusion was 53%. At home he has been on Spiriva and Dulera. Recently he has been using the Dulera more than twice per day thinking it would help his breathing. I explained to him that that is not meant to be for rescue. He does have a Ventolin inhaler for rescue, but he does not think that seems to help a whole lot. The patient did have a CT angio of the chest done as part of his evaluation through the Emergency Room. This showed no evidence of pulmonary embolic disease. Emphysema was noted. He also had interstitial thickening, especially at the lung bases. A small nodule was found on the left upper lobe measuring 5 mm. There was mild mediastinal and right hilar lymphadenopathy which was reportedly progressive. The right paratracheal lymph node was measuring up to 2.4 cm. It was not reported how large it was on the other study which actually had been done at [facility]. PAST SURGICAL HISTORY: 1. Bladder and prostate resection because of bladder cancer with formation of an urostomy. 2. Cardiac stent. PAST MEDICAL HISTORY: 1. Hypertension. 2. Diabetes. 3. ME. 4. Bladder cancer as noted. SOCIAL HISTORY: The patient quit smoking in 1998. He had smoked about 1 pack per day for 35 years. 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 He is uncertain if he had asbestos exposure there or not. ALLERGIES: IODINE DYE AND PENICILLIN. FAMILY HISTORY: Both parents lived to be elderly. Mother was 89 and father was 90. It was unclear what specific medical problems they had. MEDICATIONS: At home 1. Amlodipine 10 mg daily. 2. Aspirin 325 mg daily. 3. Atenolol 50 mg daily. 4. Fish oil 4 caps daily. 5. Lisinopril 5 mg daily. 6. Metformin 500 mg b.i.d. 7. Dulera 100/5 two puffs b.i.d. 8. Pantoprazole 40 mg daily. 9. Simvastatin 20 mg daily. 10. Spiriva 1 daily. REVIEW OF SYSTEMS: The patient's energy level has been low. It is much better today; however. This could be because of the steroids or because he is feeling better. There has been no syncope or near syncope. REPORT OF CONSULTATION: The patient snores loudly. His thinks that he stops breathing sometimes. He states he did have a home sleep study done several years ago and was told he did not have sleep apnea. This was not done through our system; however. He denies chest pains or palpitations. Appetite is now good, but had been decreased for a few days. Generally he has been gaining weight. He denies bowel complaints. He has the urostomy as noted. There is some chronic peripheral edema. The remainder of the review of systems is negative. PHYSICAL EXAMINATION: GENERAL: The patient is a pleasant 70-year-old male who was cooperative, alert and oriented. He was in no distress. The patient is obese. His BMI is 40.5. HEENT: Eye exam suggested evidence of cataract surgery and indeed the patient confirmed that. Pupils were reactive to light. Nares were clear. Mouth exam showed a Mallampati grade 3 pharynx. NECK: He has a large neck. No lymph nodes were palpable. Neck veins were mildly distended. CHEST: Normal development. HEART: Heart rate was 75 per minute. Blood pressure is 106/65. LUNGS: Giraldo revealed fairly good breath sounds bilaterally. No wheezes were heard. Oxygen saturation was 92% on 2 liter nasal cannula. ABDOMEN: Obese. Bowel sounds were present and were normal. He has the urostomy. There was no tenderness to palpation or masses. EXTREMITIES: Revealed +1 to +2 edema both lower extremities. There was no cyanosis or clubbing. LABORATORY DATA: White blood cell count is 8.02. Hemoglobin 11.2. Platelets 270,000. INR was 1.0. PTT was 26.9. Sodium was 144, potassium was 3.9, chloride was 107 and carbon dioxide level was 26. The BUN was 16 and creatinine was 1.3. Hemoglobin A1c was 6.2. BNP was 284. AST was 23 and ALT was 17 and alkaline phosphatase was 86. EKG showed a sinus rhythm. Mild nonspecific ST and T-wave changes that may have been due to motion artifact to a degree. IMPRESSION: 1. Chronic obstructive pulmonary disease with exacerbation. 2. Emphysema. 3. Right paratracheal lymphadenopathy and right hilar lymphadenopathy. 4. Left upper lobe nodule -- 5 mm. 5. Obesity. RECOMMENDATIONS: The patient is feeling much better. It is not clear exactly why he had the exacerbation. It does not seem like he actually had an infection. It seems like the nebulizer treatments and the steroids have been what helped him a lot. One could give consideration to having him get a nebulizer for home use. I think the steroids can start to be tapered. He seems to be doing overall well. He should have a followup CAT scan in 3-4 months regarding the mediastinal lymph node and the nodule. Obviously, a weight reduction program would be advised. Thank you very much for asking me to assist in his care.
[2016-03-08] MEDS: AZITHROMYCIN IV 250 MG in DEXTROSE 5% 250ML 250 ML IV SCH (22:22)
[2016-03-09] VITALS (11 sets, daily range): BP systolic 105–144; BP diastolic 63–75; PULSE 71–93; TEMP 36.7–36.8; O2SAT 90–97
[2016-03-09] MEDS: METHYLPREDNISOLONE IV 20 MG in SYRINGE 0 ML IV SCH ×2 (00:31→06:07)
[2016-03-09] MEDS: ZOLPIDEM TARTRATE 5 MG TAB PO PRN ×2 (00:38→21:52)
[2016-03-09] MEDS: ALBUT/IPRATROP 3MG/0.5MG NEB 3 ML VIAL INH SCH ×3 (02:21→14:24)
[2016-03-09 06:54] LABS: BUN/CREATININE RATIO 22.3 (10-20); CALCIUM 8.5 mg/dl (8.5-10.1); CREATININE 1.6 mg/dl (0.60-1.40); MAGNESIUM 2.5 mg/dl (1.8-2.4); POTASSIUM 4.6 mmol/L (3.5-5.1)
[2016-03-09] MEDS: ASPIRIN 325 MG ECTAB PO SCH (08:14)
[2016-03-09] MEDS: AMLODIPINE BESYLATE 5 MG TAB PO SCH (08:14)
[2016-03-09] MEDS: PANTOprazole SOD 40 MG TAB PO SCH (08:14)
[2016-03-09] MEDS: LISINOPRIL 5 MG TAB PO SCH (08:15)
[2016-03-09] MEDS: OMEGA-3 (PURIFIED FISH OIL) 1 GM CAP PO SCH (08:15)
[2016-03-09] MEDS: INSULIN ASPART 100 UNITS/ML 3 ML PEN SC SCH ×4 (08:20→20:51)
[2016-03-09] MEDS: ACETAMINOPHEN 325 MG TAB PO PRN ×2 (10:38→17:41)
--- NOTE | 2016-03-09 12:06 | Progress Note ---
Subjective Date of Service: Mar 09, 2016. Subjective Pt evaluation today including: conversation w/ patient, physical exam, chart review, lab review, review of studies, conversation w/ windows consultant, review of inpatient medication list Generally feeling better, Out off bed to chair, but Osat dropped to 70's, or 80s when up and walk even with nasal cannula oxygen 2 L, mild cough wheezing is better, no chest pain, no fever and chill Problem List Medical Problems: (1) COPD exacerbation Status: Acute (2) Shortness of breath Status: Acute Review of Systems Constitutional: No chills, No fatigue, No fever, No problem reported, No sweats , No weakness, No weight loss Eyes: No diplopia, No discharge, No eye pain, No problem reported, No redness, No see HPI, No worsening of vision ENT: No dental problems, No hearing loss, No nasal symptoms, No problem reported, No see HPI, No sore throat, No tinnitus, No trouble swallowing, No unusual epistaxis Respiratory: + see HPI Cardiac: No PND, No chest pain, No claudication, No edema, No orthopnea, No palpitations, No problem reported, No see HPI Musculoskeletal: No calf pain, No joint pain, No muscle pain, No problem reported, No see HPI, No swelling Male : No dysuria, No hematuria, No incontinence, No nocturia more than once/ night, No problem reported, No see HPI, No sexual dysfunction, No slowing stream , No urinary frequency Neurologic: No balance problems, No memory loss, No numbness/tingling, No paralysis, No problem reported, No see HPI, No vertigo, No weakness Psychiatric: No anhedonism, No anxiety, No depression symptoms, No insomnia, No problem reported, No see HPI, No substance abuse Endo: No excessive thirst, No excessive urination, No fatigue, No problem reported, No see HPI Skin: No bleeding, No color change, No itch, No new/changing skin lesions, No problem reported, No rash, No see HPI Objective Vital Signs Date Time Temp Pulse Resp B/P Pulse Ox O2 Delivery O2 Flow Rate FiO2 03/09/16 08:30 83 20 133/75 91 Nasal Cannula 1.5 03/09/16 08:06 86 16 97 Nasal Cannula 3.0 03/09/16 08:00 36.7 86 22 125/75 97 Nasal Cannula 3.0 03/09/16 08:00 92 Nasal Cannula 1.5 03/09/16 04:00 Nasal Cannula 2.0 03/09/16 03:57 36.7 93 23 144/69 94 Nasal Cannula 5.0 03/09/16 02:21 85 16 93 Nasal Cannula 2.0 03/09/16 00:00 Nasal Cannula 2.0 03/08/16 23:31 36.7 91 20 125/70 96 Nasal Cannula 2.0 03/08/16 21:22 85 16 91 Nasal Cannula 2.0 03/08/16 20:00 Nasal Cannula 2.0 03/08/16 19:40 36.9 87 20 115/68 91 Nasal Cannula 2.0 03/08/16 15:44 36.8 75 20 106/65 92 Nasal Cannula 2.0 03/08/16 15:38 Nasal Cannula 2.0 03/08/16 14:50 96 03/08/16 14:13 76 16 94 Nasal Cannula 2.0 Physical Exam General Appearance: WD/WN, no apparent distress, + obese Eyes: normal inspection, PERRL, EOMI, sclerae normal ENT: normal ENT inspection, hearing grossly normal, pharynx normal Neck: supple, no adenopathy, thyroid normal, no JVD, no carotid bruits, trachea midline Respiratory/Chest: chest non-tender, normal breath sounds, no respiratory distress, no accessory muscle use, + decreased breath sounds, + wheezing ( is better than yesterday) Cardiovascular: regular rate, rhythm, no edema, no gallop, no JVD, no murmur Abdomen: normal bowel sounds, non tender, soft, no organomegaly, no pulsatile mass Extremities: normal range of motion, non-tender, normal inspection, no pedal edema, no calf tenderness, normal capillary refill, pelvis stable, + swelling ( trace edema) 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, no motor/sensory deficits, alert, normal mood/affect, oriented x 3 Skin: normal color, warm/dry, no rash Lymphatic: no adenopathy Laboratory Results Last 24 Hours Test 03/08/16 13:05 03/08/16 16:29 03/08/16 20:44 03/09/16 05:26 Estimated Average Glucose 131 mg/dl Hemoglobin A1c 6.2 % Bedside Glucose 174 mg/dl 243 mg/dl Sodium Level 141 mmol/L Potassium Level 4.6 mmol/L Chloride Level 107 mmol/L Carbon Dioxide Level 23 mmol/L Anion Gap 11.0 mmol/L Blood Urea Nitrogen 36 mg/dl Creatinine 1.60 mg/dl Est Creatinine Clear Calc Drug Dose 51.1 ml/min Estimated GFR () 49.9 Estimated GFR (Non- 43.0 BUN/Creatinine Ratio 22.3 Random Glucose 166 mg/dl Calcium Level 8.5 mg/dl Magnesium Level 2.5 mg/dl Test 03/09/16 08:07 03/09/16 11:41 Bedside Glucose 184 mg/dl 239 mg/dl Assessment and Plan 70 y/o M likely Hx of COPD presenting with a cough, wheezing and progressive SOB x 5 days. Admitted to hospital on 03/07/2016. He denies a fever at home, denies CP, N/V, diarrhea or dysuria. His 02 sat was in the mid 80s on arrival to the ER - he does not use home 02. The pt is not aware of a diagnosis of COPD but is taking related meds and imaging is consistent with emphysema. COPD exacerbation stable and better With history of tobacco abuse Has been on Dounebs/PRN Albuterol, Abx, Solumedrol and an 02 protocol Switch Solu-Medrol to tapering dose prednisone Change azithromycin to by mouth there was some concern for A PE initially , Chest CT was done has rule out PE Was not on oxygen at home, possible need home O2 upon discharge, has ordered 2 step type 2 DM - placed on sliding scale due to steroid use - Metformin held HTN - cont Norvasc CAD - cont ASA, [place] 3s - no evidence of ACS - presumably pt is statin intolerant History of Bladder CA - urostomy present - functional - no evidence of infection History of PUD - cont Omeprazole - he is anemis so SCDs will be used for prophylaxis initially Obesity with BMI of 40.5 kg/m*m History of chronic kidney disease follow up with the nephrology stage III, Possible acute on chronic kidney failure with chronic CK D stage III, today's creatinine increased from 1.3 to 1.6 Will follow-up Patient's general condition is improving, Possible discharge to home tomorrow morning with home oxygen setting up per 2 step resolves and if kidney function getting better PTOT, Has counselling diet control and regular exercise and follow-up with PCP because of morbid obesity Continued [facility] stay due to: home environment unsafe for pt Discharge planning: home
[2016-03-09] MEDS: IPRATROPIUM BROMIDE/ALBUTEROL respimat INH INH SCH ×2 (15:00→20:52)
--- NOTE | 2016-03-09 16:32 | PULMONARY PROGRESS NOTE ---
DATE: 03/09/2016 TIME: 4:05 p.m. SUBJECTIVE: The patient feels much better. His breathing is easier. He states he was able to walk around the length of the martin twice without stopping on room air without difficulty. He has no significant cough. He feels that his breathing is about back to baseline. OBJECTIVE: GENERAL: The patient appeared comfortable at rest. His was present during this exam. VITAL SIGNS: Temperature 36.8. NECK: He has a large neck. No lymph nodes are palpable. HEART: Heart rate is 71 per minute. The rhythm is regular. Blood pressure 113/63. LUNGS: Giraldo were clear bilaterally. Oxygen saturation was 94% on 1 liter. EXTREMITIES: Revealed trace edema of the lower extremities. LABORATORY DATA: Electrolytes show sodium 141, potassium 4.6, chloride 107, bicarbonate 23. BUN was 36 and previously had been 16. Creatinine was 1.6 and previously had been 1.3. Blood sugar today was as high as 239. IMPRESSIONS: 1. Chronic obstructive pulmonary disease exacerbation - improved. 2. Emphysema. 3. Right paratracheal lymph node. 4. Left upper lobe nodule - 5 mm. 5. Obesity. COMMENTS AND RECOMMENDATIONS: The only problem that I see acutely is that his BUN and creatinine are rising. We will decrease his prednisone. This may help that problem somewhat. He likely should have a repeat profile tomorrow. It would appear that the patient is about ready for discharge if all things stay stable. It had been recommended in my consultation, I believe he should have a followup CAT scan in 3-4 months. I told the patient about this and to have him remind Dane Hair regarding this when he sees him in the office.
[2016-03-09] MEDS ORDERED: AZITHROMYCIN 250 MG TAB PO SCH (17:00)
[2016-03-09] MEDS: SIMVASTATIN 20 MG TAB PO SCH (20:52)
[2016-03-10] VITALS (7 sets, daily range): BP systolic 107–133; BP diastolic 60–83; PULSE 60–69; TEMP 36.3–36.8; O2SAT 90–95
[2016-03-10] MEDS: IPRATROPIUM BROMIDE/ALBUTEROL respimat INH INH SCH ×2 (03:00→08:47)
[2016-03-10 08:21] LABS: BUN/CREATININE RATIO 27.3 (10-20); CALCIUM 8.3 mg/dl (8.5-10.1); CREATININE 1.4 mg/dl (0.60-1.40); MAGNESIUM 2.7 mg/dl (1.8-2.4); POTASSIUM 4.3 mmol/L (3.5-5.1)
[2016-03-10] MEDS: OMEGA-3 (PURIFIED FISH OIL) 1 GM CAP PO SCH (08:44)
[2016-03-10] MEDS: LISINOPRIL 5 MG TAB PO SCH (08:44)
[2016-03-10] MEDS: AMLODIPINE BESYLATE 5 MG TAB PO SCH (08:46)
[2016-03-10] MEDS: PANTOprazole SOD 40 MG TAB PO SCH (08:46)
[2016-03-10] MEDS: ASPIRIN 325 MG ECTAB PO SCH (08:46)
[2016-03-10] MEDS: INSULIN ASPART 100 UNITS/ML 3 ML PEN SC SCH ×2 (08:55→12:55)
--- NOTE | 2016-03-10 09:35 | PULMONARY PROGRESS NOTE ---
DATE: 03/10/2016 DATE: 03/10/2016. TIME: 9:00 a.m. SUBJECTIVE: The patient had a good night. He is feeling well. He has just a mild cough this morning. There has been no sputum production. He has not had any shortness of breath. He has had no chest pains. OBJECTIVE: GENERAL: The patient is comfortable at rest. He is afebrile. EARS, NOSE, THROAT EXAMINATION: Unremarkable. VITAL SIGNS: Heart rate is 66 beats per minute. The rhythm is regular. Blood pressure 107/60. Respiratory rate is 18 breaths per minute. Lung [place] are clear bilaterally. Oxygen saturation this morning was 91% on 2 liters. However, when I saw the patient, he was on room air. Electrolytes today show sodium 142, potassium 4.3, chloride 108, bicarb 25. The BUN today is 38 and yesterday was 36. The creatinine today is 1.4 and yesterday had been 1.6. IMPRESSIONS: 1. Chronic obstructive pulmonary disease with exacerbation -- improved. 2. Emphysema. 3. Right paratracheal lymph node. 4. Left upper lobe nodule - 5 mm. 5. Obesity. COMMENTS AND RECOMMENDATIONS: The patient seems stable from a respiratory perspective. His BUN and creatinine are off slightly. He states he does see a kidney doctor. I have no objection to discharge from a pulmonary perspective. As noted previously, I would suggest a CAT scan in 3-4 months. He will be following up with Dane Hair PA-C. Would gradually taper his prednisone at discharge.
[2016-03-10] MEDS ORDERED: ZTHM250 PO (09:53)
[2016-03-10] MEDS ORDERED: PRD20 PO (09:53)
[2016-03-10] MEDS ORDERED: IPRA1AER2 INH (09:53)
--- NOTE | 2016-03-10 11:24 | Discharge Instructions ---
Discharge Instructions Admission Reason for Admission: Copd Exacerbation Discharge Discharge Diagnosis / Problem: COPD exac , possible chronic respiratory failure O2 dependent Discharge Goals Goal(s): Decrease discomfort, Improve function, Increase independence, Improve disease control, Improve nutritional status, Learn about illness, Diagnostic testing, Therapeutic intervention, Prevent Disease Progression, Specific goals Activity Recommendations Activity Limitations: resume your previous activity Exercise/Sports Limitations: as tolerated May Resume Sexual Activity: when tolerated . Instructions / Follow-Up Instructions / Follow-Up You have COPD exacerbation I'm giving you antibiotics and tapering dose of prednisone You need to be on oxygen when you up and walk and during sleep You need to call to your pulmonology to have follow-up appointment, may need to sleep studies because you possible has obstructive sleep apnea to evaluation you need to CPAP are not - you need to follow up with your primary care physician in 1 week, - take medication as instructed, never overdose or any misuse, or take with alcohol, because misuse of medicine may cause organ damage or , call your primary care physician if have questions of medicaitons. - call your primary care physician OR go to local emergency room if has any fever/chill, chest pain, shortness of breathing, nausea/vomiting/abdominal pain , facial droop/slurry speech/local weakness, or if has any questions. - fall precaution - diet as instructed - you need to follow up with your subspecialist - you should understand that it is important to follow up the above instruction , and "not following the above instruction" may cause delayed or missed care of your medical conditions which may cause permanent organ damage and even . Current Hospital Diet Patient's current hospital diet: AHA Diet (Heart Healthy), Diabetes Type 2 Diet Discharge Diet Recommended Diet: Diabetes Type 2 Diet Procedures Procedures Performed: No Pending Studies Studies pending at discharge: no Laboratory Results Hemoglobin A1c Test 03/08/16 13:05 Range/Units Estimated Average Glucose 131 mg/dl Hemoglobin A1c 6.2 H 4.5-5.6 % Medical Emergencies . Who to Call and When: Medical Emergencies: If at any time you feel your situation is an emergency, please call 911 immediately. . Non-Emergent Contact Non-Emergency issues call your: Primary Care Provider, Death Surveys Coder . . "Provider Documentation" section prepared by Juan Reeder. VTE Core Measure Inpt VTE Proph given/why not?: Enoxaparin (Lovenox)SQ, SCD's
--- NOTE | 2016-03-10 11:35 | Discharge Summary ---
Discharge Summary Admission Date: Mar 07, 2016 at 20:25 Discharge Date: Mar 10, 2016 Discharge Disposition: Home Principal Diagnosis: COPD exacerbation Problems/Secondary Diagnoses: on oxygen, and possible obstructive sleep apnea Immunizations: Have You Had Influenza Vaccine: No History of Tetanus Vaccine?: No History of Pneumococcal: No History of Hepatitis B Vaccine: No Procedures: No Consultations: Household Assistant Medication Reconciliation New Medications: Ipratropium-Albuterol (Combivent Respimat) 1 Aer Aer 1 PUFFS INH QID, #1 INH Azithromycin (Azithromycin) 250 Mg Tab 250 MG PO QDD for 2 Days, TAB Prednisone (Prednisone) 20 Mg Tab 30 MG PO DAILY for 7 Days, #11 TAB Continued Medications: Amlodipine (Norvasc) 10 Mg Tab 10 MG PO QAM, TAB Aspirin (Aspirin *) 325 Mg Tab 325 MG PO QAM, 0 Refills Atenolol (Tenormin) 50 Mg Tab 50 MG PO QAM, 0 Refills Fish Oil ([place]-3) 1 Ea Cap 4 CAP PO QAM, 0 Refills Lisinopril (Zestril) 5 Mg Tab 5 MG PO QAM, TAB Metformin Hcl (Glucophage *) 500 Mg Tab 500 MG PO BIDM, 0 Refills Mometasone Furoate-Formoterol (Dulera 100/5 Mcg) 1 Aer Aer 2 PUFFS INH BID PRN for Shortness of Breath for 30 Days, #13 GM 2 Refills Pantoprazole (Protonix) 40 Mg Tab 40 MG PO DAILY, #30 TAB Simvastatin (Zocor) 20 Mg Tab 20 MG PO QPM for 90 Days, TAB 1 Refill Tiotropium [place] (Spiriva Handihaler) 18 Mcg/ Aerp 1 CAP INH QAM, INHALER Discharge Exam Doing good, although bed, and walk, less wheezing, less cough Review of Systems: Constitutional: No chills, No fatigue, No fever, No problem reported, No sweats, No weakness, No weight loss Eyes: No diplopia, No discharge, No eye pain, No problem reported, No redness, No worsening of vision ENT: No dental problems, No hearing loss, No nasal symptoms, No problem reported, No sore throat, No tinnitus, No trouble swallowing, No unusual epistaxis Respiratory: + cough, + shortness of breath Cardiovascular: No PND, No chest pain, No claudication, No edema, No orthopnea, No palpitations, No problem reported Abdomen: No GI bleeding, No constipation, No diarrhea, No nausea, No pain, No problem reported, No vomiting Musculoskeletal: No calf pain, No joint pain, No muscle pain, No problem reported, No swelling Genitourinary - Male: No dysuria, No hematuria, No impotence, No lesions, No penile discharge, No problem reported, No urinary frequency, No urinary hesitancy, No urinary incontinence, No urinary retention, No urinary urgency Neurologic: No balance problems, No memory loss, No numbness/tingling, No paralysis, No problem reported, No vertigo, No weakness Psychiatric: No anhedonism, No anxiety, No depression symptoms, No insomnia , No problem reported, No substance abuse Endocrine: No excessive thirst, No excessive urination, No fatigue, No problem reported Hematologic / Lymphatic: No abnormal bleeding/bruising, No clotting problems , No night sweats, No problem reported, No swollen lymph nodes Integumentary: No bleeding, No color change, No itch, No new/changing skin lesions, No problem reported, No rash Physical Exam: General Appearance: WD/WN, + obese Eyes: normal inspection ENT: normal ENT inspection, hearing grossly normal, TMs normal Neck: supple, no adenopathy, thyroid normal, no JVD Respiratory/Chest: + decreased breath sounds, + wheezing (minimal) Cardiovascular: regular rate, rhythm, no edema, no gallop, no JVD Abdomen / GI: normal bowel sounds, non tender, soft, no organomegaly Extremities: normal inspection, no calf tenderness, normal capillary refill , no pedal edema 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 Admitted to hospital on 03/07/2016. He denies a fever at home, denies CP, N/V, diarrhea or dysuria. His 02 sat was in the mid 80s on arrival to the ER - he does not use home 02. The pt is not aware of a diagnosis of COPD but is taking related meds and imaging is consistent with emphysema. COPD exacerbation stable and better With history of tobacco abuse Has been on Dounebs/PRN Albuterol, Abx, Solumedrol and an 02 protocol Switch Solu-Medrol to tapering dose prednisone, this will continue upon discharge Change azithromycin to by mouth, this will continue upon discharge there was some concern for a PE initially , Chest CT was done has rule out PE Was not on oxygen at home, possible need home O2 upon discharge, has ordered 2 step, which was done Which shows he need oxygen when up and walk, nurse report he is oxygen drop when he sleep, He is having morbid obesity, possible has obstructive sleep apnea, I recommend him to follow-up with ux manager, sleep study if needed and then decide if need to CPAP or not type 2 DM - placed on sliding scale due to steroid use - Metformin held when was admitted, will continue HTN - cont Norvasc CAD - cont ASA, [place] 3s - no evidence of ACS - presumably pt is statin intolerant, PCP please follow-up History of Bladder CA - urostomy present - functional - no evidence of infection History of PUD - cont Omeprazole - he is anemis so SCDs will be used for prophylaxis initially Obesity with BMI of 40.5 kg/m*m History of chronic kidney disease follow up with the nephrology stage III, Possible acute on chronic kidney failure with chronic CK D stage III, today's creatinine increased from 1.3 to 1.6 Today is better Patient's general condition is improving, Has counselling diet control and regular exercise and follow-up with PCP because of morbid obesity Instructions / Follow-Up You have COPD exacerbation I'm giving you antibiotics and tapering dose of prednisone You need to be on oxygen when you up and walk and during sleep You need to call to your pulmonology to have follow-up appointment, may need to sleep studies because you possible has obstructive sleep apnea to evaluation you need to CPAP are not - you need to follow up with your primary care physician in 1 week, - take medication as instructed, never overdose or any misuse, or take with alcohol, because misuse of medicine may cause organ damage or , call your primary care physician if have questions of medicaitons. - call your primary care physician OR go to local emergency room if has any fever/chill, chest pain, shortness of breathing, nausea/vomiting/abdominal pain , facial droop/slurry speech/local weakness, or if has any questions. - fall precaution - diet as instructed - you need to follow up with your subspecialist - you should understand that it is important to follow up the above instruction , and "not following the above instruction" may cause delayed or missed care of your medical conditions which may cause permanent organ damage and even . Total Time Spent: Greater than 30 minutes This includes examination of the patient, discharge planning, medication reconciliation, and communication with other providers. Discharge Instructions Please refer to the electronic Patient Visit Report (Discharge Instructions) for additional information. Additional Copies To Harris Quiñonez M.D.
[2016-03-27] MEDS ORDERED: VNTHFA/IN INH (12:05)
[2016-08-07] MEDS ORDERED: IPRA1AER2 NEB (08:15)
[2016-08-07] MEDS ORDERED: ERGO500037 PO (08:15)
[2016-08-07] MEDS ORDERED: FRS/40 PO (08:15)
[2016-08-07] MEDS ORDERED: TIOT1AER2 INH (08:15)
[2016-08-07] MEDS ORDERED: FERR1TAB23 PO (08:15)
[2016-08-07] MEDS ORDERED: POTA10CA28 PO (08:15)
== END 2016-03-10 13:55 | disposition home or self-care (01) | DRG 191 ==
LOC: ENRESERVDT → ENRESERVTM → C.EDB 16:58 → C.MED 20:25
PROVIDERS: ADMIT Internal Medicine; ATTEND Hospitalist
DX: J44.1 Chronic obstructive pulmonary disease with (acute) exacerbation (principal); N17.9 Acute kidney failure, unspecified; Z68.41 Body mass index [BMI] 40.0-44.9, adult; Z85.51 Personal history of malignant neoplasm of bladder; I25.2 Old myocardial infarction; Z95.5 Presence of coronary angioplasty implant and graft; Z87.11 Personal history of peptic ulcer disease; Z87.891 Personal history of nicotine dependence; Z91.041 Radiographic dye allergy status; Z88.0 Allergy status to penicillin; Z79.82 Long term (current) use of aspirin; Z79.899 Other long term (current) drug therapy; I25.10 Atherosclerotic heart disease of native coronary artery without angina pectoris; R91.1 Solitary pulmonary nodule; E66.01 Morbid (severe) obesity due to excess calories; G47.33 Obstructive sleep apnea (adult) (pediatric); E11.22 Type 2 diabetes mellitus with diabetic chronic kidney disease; I12.9 Hypertensive chronic kidney disease with stage 1 through stage 4 chronic kidney disease, or unspecified chronic kidney disease; N18.3 Chronic kidney disease, stage 3 (moderate); Z90.6 Acquired absence of other parts of urinary tract; Z90.79 Acquired absence of other genital organ(s)

== ENCOUNTER → 2016-04-05 | Day surgery (SDC) | payer OTHER ==
[2016-03-27 12:11] VITALS: Ht 167.6 cm; Wt 110.5 kg
[~2016-04-05] VITALS: Ht 167.6 cm; Wt 110.5 kg
[~2016-04-05] MED LIST changes: +ERGO500037 PO; +FERR1TAB23 PO; +FRS/40 PO; +IPRA1AER2 NEB; +KETAMINE HCL INJ 50 MG/ML 10 ML VIAL ONE; +MIDAZOLAM HCL 1 MG/ML 2ML VIAL ONE; -MOME100A INH; +POTA10CA28 PO; +SODIUM CHLORIDE 0.9% 500ML 500 ML IV ONE; +TIOT1AER PO; +TIOT1AER2 INH; -TIOTCAP INH; +VNTHFA/IN INH
--- NOTE | 2016-04-05 08:48 | Endo History and Physical ---
History & Physical Date of Service: Apr 05, 2016. Chief Complaint: gastric ulcer Referring Physician: Dr. Harris Quiñonez History of Present Illness 70 yo CM who presents for EGD secondary to gastric ulcers. Past Surgical History Hx Cardiac Surgery: Yes (HEART CATH, STENT X3) Hx Internal Defibrillator: No Hx Pacemaker: No Hx Abdominal Surgery: No Hx of Implantable Prosthesis: No Hx Post-Op Nausea and Vomiting: No Hx Cancer Surgery: Yes (BLADDER, PROSTATE, LYMPH NODE REMOVAL, LEFT NECK TUMOR REMOVAL) Hx Thoracic Surgery: No Hx Orthopedic: No Hx Urinary Tract Surgery: No Family History None Social History Smoking Status: Former Smoker Hx Substance Use: No Hx Alcohol Use: No Allergies Coded Allergies: Iodinated Diagnostic Agents (Verified Allergy, Mild, itching in groin area , 03/27/16) Penicillins (Verified Adverse Reaction, Unknown, OUT OF IT, 03/27/16) Current Medications Reported Home Medications Medications Dose Route/Sig Max Daily Dose Days Date Category Ventolin Hfa (Albuterol) 200 Puffs/75312 Mcg Aers 2-4 Puffs INH Q6H PRN 03/27/16 Reported Protonix (Pantoprazole Sodium) 40 Mg Tab 40 Mg PO QAM 12/31/15 Reported Zocor (Simvastatin) 20 Mg Tab 20 Mg PO QPM 11/03/15 Reported Zestril (Lisinopril) 5 Mg Tab 5 Mg PO QAM 11/03/15 Reported Norvasc (Amlodipine Besylate) 10 Mg Tab 10 Mg PO QAM 11/03/15 Reported Aspirin * (Aspirin) 325 Mg Tab 325 Mg PO QAM 08/05/07 Reported [place]-3 (Fish Oil) 1 Ea Cap 2 Cap PO QAM 08/05/07 Reported Tenormin (Atenolol) 50 Mg Tab 50 Mg PO QAM 08/05/07 Reported Glucophage * (Metformin HCl) 500 Mg Tab 500 Mg PO BIDM 08/05/07 Reported Vital Signs Weight (Kilograms): 110.45 Height (Feet): 5 Height (Inches): 6 Date Time Temp Pulse Resp B/P Pulse Ox O2 Delivery O2 Flow Rate FiO2 04/05/16 08:19 36.4 59 22 123/65 90 Room Air Physical Exam General Appearance: WD/WN, no apparent distress Respiratory/Chest: Auscultation: breath sounds normal Cardiovascular: Heart Auscultation: RRR Abdomen: Bowel Sounds: normal Inspection & Palpation: soft, non-distended, no tenderness, guarding & rebound Assessment and Plan Assessment: 70 yo CM who presents for EGD secondary to gastric ulcers. Plan: Proceed with EGD.
--- NOTE | 2016-04-05 09:31 | Discharge Instructions ---
Endoscopy Patient Instructions Date / Procedure(s) Performed Apr 05, 2016. EGD Allergy Information Coded Allergies: Iodinated Diagnostic Agents (Verified Allergy, Mild, itching in groin area , 03/27/16) Penicillins (Verified Adverse Reaction, Unknown, OUT OF IT, 03/27/16) Discharge Date / Findings Apr 05, 2016. Gastric ulcers Medication Instructions Stopped Medication(s): stopped Metformin on Sunday,took ASA yesterday OK to resume all medications today as prescribed. Start Carafate 1g by mouth four times daily prior to meals and at bedtime for 10 days. Reported Home Medications Medications Dose Route/Sig Max Daily Dose Days Date Category Ventolin Hfa (Albuterol) 200 Puffs/24769 Mcg Aers 2-4 Puffs INH Q6H PRN 03/27/16 Reported Protonix (Pantoprazole Sodium) 40 Mg Tab 40 Mg PO QAM 12/31/15 Reported Zocor (Simvastatin) 20 Mg Tab 20 Mg PO QPM 11/03/15 Reported Zestril (Lisinopril) 5 Mg Tab 5 Mg PO QAM 11/03/15 Reported Norvasc (Amlodipine Besylate) 10 Mg Tab 10 Mg PO QAM 11/03/15 Reported Aspirin * (Aspirin) 325 Mg Tab 325 Mg PO QAM 08/05/07 Reported [place]-3 (Fish Oil) 1 Ea Cap 2 Cap PO QAM 08/05/07 Reported Tenormin (Atenolol) 50 Mg Tab 50 Mg PO QAM 08/05/07 Reported Glucophage * (Metformin HCl) 500 Mg Tab 500 Mg PO BIDM 08/05/07 Reported Provider Instructions Activity Restrictions - No exercising or heavy lifting for 24 hours. - Do not drink alcohol the day of the procedure. - Do not drive a car or operate machinery until the day after the procedure. - Do not make any important decisions or sign important papers in 24 hours after the procedure. Following Day: - Return to full activity which may include returning to work/school. Diet Start your diet with liquids and light foods (jello, soup, juice, toast). Then eat your usual diet if not nauseated. Treatment For Common After Affects For mild abdominal pain, bloating, or excessive gas: - Rest - Eat lightly - Lie on right side Follow-Up Information Follow-up with Dr. Harris Quiñonez as scheduled Anesthesia Information What You Should Know You have had a procedure that required some medicine to reduce anxiety and discomfort. This treatment is called moderate sedation. After receiving the treatment, you may be sleepy, but you will be able to breathe on your own. The effects of the treatment may last for several hours. Follow these instructions along with Activity/Diet recommendations noted above: * Do NOT do anything where dizziness or clumsiness would be dangerous. * Rest quietly at home today, then you can be up and about tomorrow. * Have a responsible person stay with you the rest of today. * You may have had an I.V. today. If so, you may take the dressing off later today. Recommendations Call your doctor if: * Trouble breathing * Continuous vomiting for more than 24 hours * Temperature above 101 degrees * Severe abdominal pain or bloating * Pain not relieved by pain medicine ordered * There is increased drainage or redness from any incision * A large amount of rectal bleeding greater than 2-3 tablespoons. (If you had a polyp/s removed or have hemorrhoids, a small amount of blood - from the rectum is to be expected.) * You have any unanswered questions or concerns. IN THE EVENT OF A SERIOUS EMERGENCY, GO TO THE NEAREST EMERGENCY ROOM Your discharge instructions were prepared by provider Ok Doe. Patient Instructions Signature Page Bart Julio Patient (or Guardian) Signature/Date: I have read and understand the instructions given to me by my caregivers. Caregiver/RN/Doctor Signature/Date: The above-named patient and/or guardian has received patient instructions on this date. + Original Patient Signature Page (only) stays with chart. Please make copy for patient.
--- NOTE | 2016-04-05 09:46 | Anesthesiology Progress Note ---
Anesthesia Post Op Note Date & Time Apr 05, 2016 at 09:46 Vital Signs Pain Intensity: 0 Vital Signs Past 12 Hours Date Time Temp Pulse Resp B/P Pulse Ox O2 Delivery O2 Flow Rate FiO2 04/05/16 09:23 54 22 118/59 95 Mask 5 04/05/16 08:19 36.4 59 22 123/65 90 Room Air Notes Mental Status: alert / awake / arousable, participated in evaluation Pt Amnestic to Procedure: Yes Nausea / Vomiting: adequately controlled Pain: adequately controlled Airway Patency, RR, SpO2: stable & adequate BP & HR: stable & adequate Hydration State: stable & adequate Anesthetic Complications: no major complications apparent
[2016-04-05 09:53] VITALS: BP 119/65; PULSE 50; O2SAT 90
--- NOTE | 2016-04-05 10:17 | GI REPORT ---
Procedure Date: 04/05/2016 8:51 AM THIS REPORT HAS BEEN AMENDED Addendum Number: 1 Addendum Date: 04/12/2016 9:37:02 AM No specimens were collected during this procedure, and therefore, no pathology is pending. Procedure: Upper GI endoscopy Indications: Follow-up of acute peptic ulcer Medicines: Monitored Anesthesia Care Complications: No immediate complications. Estimated Blood Loss: Estimated blood loss: none. Procedure: Pre-Anesthesia Assessment: - Prior to the procedure, a History and Physical was performed, and patient medications and allergies were reviewed. The patient's tolerance of previous anesthesia was also reviewed. The risks and benefits of the procedure and the sedation options and risks were discussed with the patient. All questions were answered, and informed consent was obtained. Prior Anticoagulants: The patient has taken aspirin, last dose was 1 day prior to procedure. ASA Grade Assessment: IV - A patient with severe systemic disease that is a constant threat to life. After reviewing the risks and benefits, the patient was deemed in satisfactory condition to undergo the procedure. After obtaining informed consent, the endoscope was passed under direct vision. Throughout the procedure, the patient's blood pressure, pulse, and oxygen saturations were monitored continuously. The scope was introduced through the mouth, and advanced to the second part of duodenum. The upper GI endoscopy was accomplished without difficulty. The patient tolerated the procedure well. Findings: The esophagus was normal. Two non-bleeding superficial gastric ulcers with no stigmata of bleeding were found in the gastric antrum. The largest lesion was 5 mm in largest dimension. The examined duodenum was normal. Impression: - Normal esophagus. - Non-bleeding gastric ulcers with no stigmata of bleeding. - Normal examined duodenum. - No specimens collected. Recommendation: - Resume previous diet. - Continue present medications. - Await pathology results. - Return to primary care physician as previously scheduled. Ok Doe DO 04/05/2016 9:39:48 AM This report has been signed electronically. Note Initiated On: 04/05/2016 8:51 AM I attest to the content of the Intraoperative Record and orders documented therein, exceptions below Ok Doe, DO 04/12/2016 9:37:34 AM This report has been signed electronically.
== END | disposition home or self-care (01) ==
LOC: C.GI 07:53
PROVIDERS: ATTEND Internal Medicine
DX: K25.9 Gastric ulcer, unspecified as acute or chronic, without hemorrhage or perforation (principal); Z95.5 Presence of coronary angioplasty implant and graft; Z98.890 Other specified postprocedural states; Z87.891 Personal history of nicotine dependence; Z88.0 Allergy status to penicillin; Z79.82 Long term (current) use of aspirin; E11.9 Type 2 diabetes mellitus without complications

== ENCOUNTER → 2016-04-25 | Outpatient (CLI) | payer OTHER ==
[~2016-04-25] MED LIST changes: -KETAMINE HCL INJ 50 MG/ML 10 ML VIAL ONE; -MIDAZOLAM HCL 1 MG/ML 2ML VIAL ONE; -SODIUM CHLORIDE 0.9% 500ML 500 ML IV ONE
--- NOTE | 2016-04-25 10:47 | DIAGNOSTIC IMAGING REPORT ---
CT SCAN OF THE ABDOMEN AND PELVIS WITHOUT CONTRAST CLINICAL HISTORY: Renal mass COMPARISON STUDY: CT scan dated 04/10/2013 TECHNIQUE: CT scan of the abdomen and pelvis was performed from the lung bases to the proximal femurs. Images are reviewed in the axial, sagittal, and coronal planes. IV contrast was not administered for this examination. CT DOSE: 1704.04 mGy.cm FINDINGS: Lower chest: There are coronary artery calcifications present. There is pulmonary emphysema. Liver: The unenhanced liver is normal in size, contour, and attenuation. There is no intrahepatic biliary ductal dilatation. Gallbladder: There are enlarging gallstones present. Spleen: Normal in size and attenuation. Pancreas: Unremarkable. Adrenal glands: Unremarkable. Kidneys: No renal calculi are visualized. There is a 14 mm lower pole left renal hypodensity. This approaches water attenuation and is most consistent with a cyst. Bowel: There are no transition zones indicate bowel obstruction. There is a right lower quadrant ostomy. There is no evidence of acute diverticulitis. Peritoneum: There is no intraperitoneal free air or abdominal ascites. There is a fat-containing umbilical hernia. There is a right lower quadrant parastomal hernia. There are postsurgical changes of a ventral hernia mesh repair. There is a small left inguinal hernia. Vasculature: The abdominal aorta is normal in course and caliber. Adenopathy: None. Pelvic viscera: The patient appears be status post a prior cystectomy and ileal loops diversion. Skeletal structures: No destructive osseous lesions are seen. IMPRESSION: 1. Postsurgical changes of a prior cystectomy and ileal loop diversion. 2. Cholelithiasis 3. 14 mm lower pole left renal hypodensity most consistent with a cyst 4. Emphysema 5. No evidence of pathologic adenopathy. Electronically signed by: Tobias Caldwell M.D. 04/25/2016 10:46 AM Dictated Date/Time: 04/25/2016 10:38 AM
== END | disposition home or self-care (01) ==
LOC: C.CTS 10:21
PROVIDERS: ATTEND Urology
DX: N28.1 Cyst of kidney, acquired (principal); K80.20 Calculus of gallbladder without cholecystitis without obstruction; J43.9 Emphysema, unspecified

== ENCOUNTER 2016-06-20 17:39 | Emergency (ER) | payer OTHER ==
[~2016-06-20] VITALS: Ht 167.6 cm; Wt 116.0 kg
[~2016-06-20 17:39] MED LIST changes: -ERGO500037 PO; -FERR1TAB23 PO; -FRS/40 PO; -IPRA1AER2 NEB; -POTA10CA28 PO; -TIOT1AER PO; -TIOT1AER2 INH
[2016-06-20 17:41] VITALS: TEMP 36.9; Ht 167.6 cm; Wt 116.0 kg
[2016-06-20 17:54] VITALS: O2SAT 85
[2016-06-20 18:24] LABS: PARTIAL THROMBOPLASTIN RATIO 0.9; PROTHROMBIN TIME (PATIENT) 10.3 SECONDS (9.0-12.0)
[2016-06-20 18:27] LABS: ALT/SGPT 21 U/L (12-78); AST/SGOT 18 U/L (15-37); BLOOD UREA NITROGEN 20 mg/dl (7-18); BUN/CREATININE RATIO 12.7 (10-20); CALCIUM 8.3 mg/dl (8.5-10.1); CARBON DIOXIDE 26 mmol/L (21-32); CHLORIDE 111 mmol/L (98-107); GLUCOSE 112 mg/dl (70-99); POTASSIUM 4.2 mmol/L (3.5-5.1); SODIUM 144 mmol/L (136-145)
[2016-06-20] MEDS ORDERED: ASPEC325 PO (18:29)
[2016-06-20] MEDS ORDERED: GLC500 PO (18:29)
[2016-06-20] MEDS ORDERED: TIOT1AER PO (18:29)
--- NOTE | 2016-06-20 18:29 | DIAGNOSTIC IMAGING REPORT ---
SINGLE VIEW CHEST CLINICAL HISTORY: Cough FINDINGS: An AP, portable, upright chest radiograph is compared to chest x-ray and chest CT dated 03/07/2016. The examination is degraded by portable technique, apical lordotic positioning, large body habitus, and patient rotation. The heart is enlarged and there is atherosclerotic calcification of the thoracic aorta. The pulmonary vasculature is noncongested. Emphysema and chronic interstitial thickening are similar to previous. There is bibasilar atelectasis. No airspace consolidation, large pleural effusion, or pneumothorax is seen. The skeletal structures are osteopenic. The bony thorax is grossly intact. IMPRESSION: Cardiomegaly and emphysema with no acute cardiopulmonary abnormality. Electronically signed by: Mateo Tuttle M.D. 06/20/2016 6:27 PM Dictated Date/Time: 06/20/2016 6:25 PM
[2016-06-20 18:34] LABS: ALKALINE PHOSPHATASE 71 U/L (45-117); CKMB/CK RATIO 0.9 (0-3.0)
[2016-06-20 20:05] LABS: BASO % 0.4 %; BASO ABS # 0.03 K/uL (0-0.2); COMPLETE YES; EOS % 1.1 %; HEMATOCRIT 32.3 % (42-52); IG% 0.1 %; LYMPH % 15.7 %; LYMPH ABS # 1.32 K/uL (1.2-3.4); MEAN CELL VOLUME 79.8 fL (80-100); MEAN CORPUSCULAR HEMOGLOBIN 23.2 pg (25-34); MEAN CORPUSCULAR HGB CONC 29.1 g/dl (32-36); MEAN PLATELET VOLUME 9.9 fL (7.4-10.4); MONO % 5.7 %; PLATELET COUNT 320 K/uL (130-400); RED BLOOD COUNT 4.05 M/uL (4.7-6.1); WHITE BLOOD COUNT 8.43 K/uL (4.8-10.8)
--- NOTE | 2016-06-20 20:14 | EMERGENCY ROOM VISIT NOTE ---
History Report prepared by Heather: Reginald Elizondo Under the Supervision of: Dr. Benjamin Nair D.O. First contact with patient: 17:47 Chief Complaint: SHORTNESS OF BREATH Stated Complaint: SHORT OF BREATH Nursing Triage Summary: pt sent in by pulparvez CAMEJO , reports increased exertional sob , reports intermittent cp midsternal, denies radiation of pressure History of Present Illness The patient is a 70 year old male who presents to the Emergency Room with complaints of worsening of his shortness of breath occurring today. He reports using 3 liters of supplemental oxygen at night, and sometimes during the day as needed, but more often recently. He denies any cough or history of COPD. He notes he had been sick this past winter, and afterwards he began having shortness of breath symptoms. The patient is a former smoker of 18 years. He notes his distribution engineering technologist noted a possible spot on his lung. He was sent over from the distribution engineering technologist's office for a greater evaluation, and due to an abnormal EKG. He reports his oxygen saturation level was low today at the distribution engineering technologist's office when he arrived. He notes he had 3 stents placed 17 years ago. Source of History: patient Onset: today Position: other (lungs) Quality: other (shortness of breath) Timing: worsening Associated Symptoms: No cough Review of Systems See HPI for pertinent positives & negatives. A total of 10 systems reviewed and were otherwise negative. Past Medical & Surgical Medical Problems: (1) Bladder cancer (2) HTN (hypertension) (3) Myocardial infarction Surgical Problems: (1) History of urostomy Family History No pertinent family history stated. Social History Smoking Status: Former Smoker Drug Use: none Marital Status: Occupation Status: retired Current/Historical Medications Scheduled Amlodipine (Norvasc), 10 MG PO QAM Aspirin (Aspirin), 325 MG PO QAM Atenolol (Tenormin), 50 MG PO QAM Fish Oil ([place]-3), 2 CAP PO QAM Lisinopril (Zestril), 5 MG PO QAM Metformin HCl (Metformin HCl), 500 MG PO BID Pantoprazole (Protonix), 40 MG PO QAM Simvastatin (Zocor), 20 MG PO QPM Tiotropium [place]-Olodaterol (Stiolto Respimat 2.5-2.5 Mcg/Act), 1 PUFF PO BID Scheduled PRN Albuterol Hfa (Ventolin Hfa), 2-4 PUFFS INH Q6H PRN for SOB/Wheezing Allergies Coded Allergies: Iodinated Diagnostic Agents (Verified Allergy, Mild, itching in groin area , 06/20/16) Penicillins (Verified Adverse Reaction, Unknown, OUT OF IT, 06/20/16) Physical Exam Vital Signs Date Time Temp Pulse Resp B/P Pulse Ox O2 Delivery O2 Flow Rate FiO2 06/20/16 19:03 108 20 114/69 96 Nasal Cannula 2.0 06/20/16 17:54 85 Room Air 06/20/16 17:51 109 06/20/16 17:41 36.9 91 22 125/77 85 Room Air Physical Exam CONSTITUTIONAL/VITAL SIGNS: Reviewed / noted above. GENERAL: Non-toxic in appearance. INTEGUMENTARY: Warm, dry, and [place]. HEAD: Normocephalic. EYES: without scleral icterus or trauma. ENT/OROPHARYNX: clear and moist. LYMPHADENOPATHY/NECK: Is supple without lymphadenopathy or meningismus. RESPIRATORY: Lungs clear and equal. CARDIOVASCULAR: Regular rate and rhythm. GI/ABDOMEN: Soft and nontender. No organomegaly or pulsatile mass. No rebound or guarding. Normal bowel sounds. EXTREMITIES: Pulses are slightly irregular. BACK: No CVA tenderness. NEUROLOGICAL: Intact without focal deficits. PSYCHIATRIC: normal affect. MUSCULOSKELETAL: Normally developed with good muscle tone. Medical Decision & Procedures ER Provider Diagnostic Interpretation: Radiology results as stated below per my review and radiologist interpretation: SINGLE VIEW CHEST FINDINGS: An AP, portable, upright chest radiograph is compared to chest x-ray and chest CT dated 03/07/2016. The examination is degraded by portable technique, apical lordotic positioning, large body habitus, and patient rotation. The heart is enlarged and there is atherosclerotic calcification of the thoracic aorta. The pulmonary vasculature is noncongested. Emphysema and chronic interstitial thickening are similar to previous. There is bibasilar atelectasis. No airspace consolidation, large pleural effusion, or pneumothorax is seen. The skeletal structures are osteopenic. The bony thorax is grossly intact. IMPRESSION: Cardiomegaly and emphysema with no acute cardiopulmonary abnormality. Electronically signed by: Mateo Tuttle M.D. 06/20/2016 6:27 PM Dictated Date/Time: 06/20/2016 6:25 PM Laboratory Results 06/20/16 17:55 Red Blood Count 4.05, Mean Corpuscular Volume 79.8, Mean Corpuscular Hemoglobin 23.2, Mean Corpuscular Hemoglobin Concent 29.1, Mean Platelet Volume 9.9, Neutrophils (%) (Auto) 77.0, Lymphocytes (%) (Auto) 15.7, Monocytes (%) (Auto) 5.7, Eosinophils (%) (Auto) 1.1, Basophils (%) (Auto) 0.4, Neutrophils # (Auto) 6.50, Lymphocytes # (Auto) 1.32, Monocytes # (Auto) 0.48, Eosinophils # (Auto) 0.09, Basophils # (Auto) 0.03 06/20/16 17:55 Test 06/20/16 17:55 White Blood Count 8.43 K/uL (4.8-10.8) Red Blood Count 4.05 M/uL (4.7-6.1) Hemoglobin 9.4 g/dL (14.0-18.0) Hematocrit 32.3 % (42-52) Mean Corpuscular Volume 79.8 fL (80-100) Mean Corpuscular Hemoglobin 23.2 pg (25-34) Mean Corpuscular Hemoglobin Concent 29.1 g/dl (32-36) Platelet Count 320 K/uL (130-400) Mean Platelet Volume 9.9 fL (7.4-10.4) Neutrophils (%) (Auto) 77.0 % Lymphocytes (%) (Auto) 15.7 % Monocytes (%) (Auto) 5.7 % Eosinophils (%) (Auto) 1.1 % Basophils (%) (Auto) 0.4 % Neutrophils # (Auto) 6.50 K/uL (1.4-6.5) Lymphocytes # (Auto) 1.32 K/uL (1.2-3.4) Monocytes # (Auto) 0.48 K/uL (0.11-0.59) Eosinophils # (Auto) 0.09 K/uL (0-0.5) Basophils # (Auto) 0.03 K/uL (0-0.2) RDW Standard Deviation 52.3 fL (36.4-46.3) RDW Coefficient of Variation 17.8 % (11.5-14.5) Immature Granulocyte % (Auto) 0.1 % Immature Granulocyte # (Auto) 0.01 K/uL (0.00-0.02) Prothrombin Time 10.3 SECONDS (9.0-12.0) Prothromb Time International Ratio 1.0 (0.9-1.1) Activated Partial Thromboplast Time 23.4 SECONDS (21.0-31.0) Partial Thromboplastin Ratio 0.9 Anion Gap 7.0 mmol/L (3-11) Est Creatinine Clear Calc Drug Dose 51.4 ml/min Estimated GFR () 49.9 Estimated GFR (Non- 43.0 BUN/Creatinine Ratio 12.7 (10-20) Calcium Level 8.3 mg/dl (8.5-10.1) Total Bilirubin 1.1 mg/dl (0.2-1) Aspartate Amino Transf (AST/SGOT) 18 U/L (15-37) Alanine Aminotransferase (ALT/SGPT) 21 U/L (12-78) Alkaline Phosphatase 71 U/L (45-117) Total Creatine Kinase 67 U/L (39-308) Creatine Kinase MB 0.6 ng/ml (0.5-3.6) Creatine Kinase MB Ratio 0.9 (0-3.0) Troponin I < 0.015 ng/ml (0-0.045) Pro-B-Type Natriuretic Peptide 1195 pg/ml (0-900) Total Protein 6.5 gm/dl (6.4-8.2) Albumin 3.2 gm/dl (3.4-5.0) Globulin 3.3 gm/dl (2.5-4.0) Albumin/Globulin Ratio 1.0 (0.9-2) Laboratory results as stated above per my review. ECG Indication: SOB/dyspnea Rate (beats per minute): 94 Rhythm: sinus rhythm Findings: PAC, other (Second degree AV block type 2) ED Course 175: Previous medical records were reviewed. The patient was evaluated in room B12B. A complete history and physical examination was performed. 2014: On reevaluation, the patient is doing well. I discussed the results and findings with the patient. He verbalized agreement of the treatment plan. The patient was discharged home. Medical Decision the differential was considered includes acute myocardial infarction, acute coronary syndrome, myocarditis, pericarditis, pericardial effusions /tamponade, esophageal perforation, pulmonary embolism, pneumonia, pneumothorax, cardiomyopathy, congestive heart, anemia , COPD/asthma exacerbation... This is a 70-year-old male who presents to the ED with a chief complaint of an abnormal EKG. The patient was seen by the pulmonology service, Dane COOPER, with Dr. Cameron. This was a routine scheduled follow-up visit from her previous visit. During the patient's office visit, an EKG was performed and was abnormal. For this reason, the patient was sent to the emergency department. The patient denies any chest pains or change in his baseline condition. He does use oxygen at night. He was found to be hypoxic on room air. The patient's room air saturations here was 85%. The patient denies any new or acute pulmonary issues. He states that his breathing is near baseline. He does report some exertional dyspnea as well. He has not had fever or cough. No chest pains. No blood in his stools or other complaints. Chest x-ray did not show any acute process. An EKG shows a sinus rhythm at a rate of 94. He appears to have intermittent second-degree A-V block Mobitz type I and also some intermittent PACs. The BNP was 1195. BUN is 20. Creatinine 1.6. Troponin was negative. CBC reveals a hemoglobin of 9.4. I talked to the patient about his results. I did recommend follow-up visit with his PCP next week for recheck of his creatinine and hemoglobin. The patient is felt to be stable for discharge. He is asymptomatic at this time. His oxygen saturations are 95% on 2 L, which is what he normally uses at night. He was recommended to use oxygen 24 hours a day and follow-up with his pulmonology service as well. Impression Primary Impression: Chronic lung disease Scribe Attestation The scribe's documentation has been prepared under my direction and personally reviewed by me in its entirety. I confirm that the note above accurately reflects all work, treatment, procedures, and medical decision making performed by me. Departure Information Dispostion Home / Self-Care Referrals No Doctor, Assigned (PCP) Patient Instructions My [facility] Additional Instructions Follow-up with your doctor for further care and evaluation in 1 week. Use 2 L oxygen at all times. Have your kidney function and hemoglobin retested next week by your health care provider. Return to the emergency department for worsening or new symptoms or any concerns. You have been examined and treated today on an emergency basis only. This is not a substitute for, or an effort to provide, complete comprehensive medical care. It is impossible to recognize and treat all injuries or illnesses in a single emergency department visit. It is therefore important that you follow up closely with your doctor. Call as soon as possible for an appointment.
[2016-06-20 20:34] VITALS: BP 101/69; PULSE 94; O2SAT 96
[2016-08-07] MEDS ORDERED: FRS/40 PO (08:15)
[2016-08-07] MEDS ORDERED: POTA10CA28 PO (08:15)
[2016-08-07] MEDS ORDERED: TIOT1AER2 INH (08:15)
[2016-08-07] MEDS ORDERED: FERR1TAB23 PO (08:15)
[2016-08-07] MEDS ORDERED: IPRA1AER2 NEB (08:15)
[2016-08-07] MEDS ORDERED: ERGO500037 PO (08:15)
== END 2016-06-20 20:35 | disposition home or self-care (01) ==
LOC: C.EDB 17:41
DX: J98.4 Other disorders of lung (principal); Z99.81 Dependence on supplemental oxygen; Z87.891 Personal history of nicotine dependence; I10 Essential (primary) hypertension; Z85.51 Personal history of malignant neoplasm of bladder; I25.2 Old myocardial infarction; Z79.82 Long term (current) use of aspirin; Z79.899 Other long term (current) drug therapy

== ENCOUNTER → 2016-07-25 | Outpatient (CLI) | payer OTHER ==
[~2016-07-25] MED LIST changes: +ALUMSUS2 PO; +ASCO100T4 PO; +ASPEC81 PO; +BACL10TA PO; +ERGO500037 PO; +FERR1TAB23 PO; +FRS/40 PO; +IPRA1AER2 NEB; +IPRASOL4 INH; +NTRSLP4 SL; +POTA10CA28 PO; +PRED10TA PO; +SILD1TAB19 PO; +TIOT1AER PO; +TIOT1AER2 INH
[2016-07-25 14:10] LABS: HEMATOCRIT 36.7 % (42-52); MEAN CELL VOLUME 80.7 fL (80-100); MEAN CORPUSCULAR HEMOGLOBIN 22.9 pg (25-34); MEAN CORPUSCULAR HGB CONC 28.3 g/dl (32-36); MEAN PLATELET VOLUME 10.6 fL (7.4-10.4); PLATELET COUNT 298 K/uL (130-400); RED BLOOD COUNT 4.55 M/uL (4.7-6.1); WHITE BLOOD COUNT 10.49 K/uL (4.8-10.8)
[2016-07-25 14:35] LABS: BLOOD UREA NITROGEN 25 mg/dl (7-18); BUN/CREATININE RATIO 17.6 (10-20); CALCIUM 8.6 mg/dl (8.5-10.1); CARBON DIOXIDE 27 mmol/L (21-32); CHLORIDE 108 mmol/L (98-107); GLUCOSE 129 mg/dl (70-99); MAGNESIUM 2.1 mg/dl (1.8-2.4); PHOSPHORUS 3.2 mg/dl (2.5-4.9); POTASSIUM 4.2 mmol/L (3.5-5.1); SODIUM 145 mmol/L (136-145)
[2016-07-25 14:50] LABS: BASO % 0.6 %; BASO ABS # 0.06 K/uL (0-0.2); COMPLETE YES; EOS % 1.7 %; HYPOCHROMIA PRESENT; IG% 0.5 %; LYMPH % 10.8 %; LYMPH ABS # 1.13 K/uL (1.2-3.4); MICROCYTOSIS PRESENT; NEUT % 80.4 %; OVALOCYTES 1+; POLYCHROMASIA 1+
== END | disposition home or self-care (01) ==
LOC: C.LAB1850 11:47
PROVIDERS: ATTEND Internal Medicine Nephrology
DX: N18.3 Chronic kidney disease, stage 3 (moderate) (principal)

== ENCOUNTER → 2016-08-07 | Day surgery (SDC) | payer OTHER ==
[~2016-08-07] VITALS: Ht 167.6 cm; Wt 115.0 kg
[2016-08-07 08:00] VITALS: BP 118/59; PULSE 67; TEMP 36.5; O2SAT 98; Ht 167.6 cm; Wt 115.0 kg
--- NOTE | 2016-08-07 08:54 | Procedure Note ---
Pre-Mod Sedation Assessment General Date of Moderate Sedation: Aug 07, 2016. Vital Signs: Vital Signs Past 12 Hours Date Time Temp Pulse Resp B/P (MAP) Pulse Ox O2 Delivery O2 Flow Rate FiO2 08/07/16 08:00 36.5 67 16 118/59 98 Room Air Review Cardiovascular: regular rate, rhythm, no edema Abdomen: normal bowel sounds, non tender Lungs: chest non-tender, lungs clear Airway Class: III Pre-Sedation Airway Assessment Oral Cavity: Dentures Able to Visualize Vocal Cords: No Short Thick Neck: No Hx of Sleep Apnea: No Smoking Status: Former Smoker Mallampati Classification: Class III ASA Classification: Class II Procedure Planning Contraindications-for Mod Sed: None Yes Notes The planned sedation has been discussed with the patient and consent obtained. I have identified the patient, determined the appropriateness of sedation and have assessed the patient immediately prior to the procedure. All medicine(s) and interventions are by my order.
[2016-08-07 09:46] LABS: ISTAT ARTERIAL BLOOD GAS HCO3 26 meq/L (19-24); ISTAT ARTERIAL BLOOD GAS PCO2 44 mmHg (35-46); ISTAT ARTERIAL BLOOD GAS PO2 < 32 mmHg (80-95); ISTAT ARTERIAL BLOOD GAS pH 7.38 (7.35-7.45); ISTAT CARBON DIOXIDE 27 mEq/l (24-31)
[2016-08-07 09:46] LABS: ISTAT ARTERIAL BLOOD GAS HCO3 25 meq/L (19-24); ISTAT ARTERIAL BLOOD GAS PCO2 41 mmHg (35-46); ISTAT ARTERIAL BLOOD GAS PO2 < 32 mmHg (80-95); ISTAT ARTERIAL BLOOD GAS pH 7.39 (7.35-7.45); ISTAT CARBON DIOXIDE 26 mEq/l (24-31)
--- NOTE | 2016-08-07 09:54 | Cardiac Catheterization ---
Procedure Note Procedure Date Aug 07, 2016. Pre-Procedure Diagnosis Cardiomyopathy AUC Score - Post-Procedure Diagnosis Elevated Intracardiac Pressures Procedure(s) Performed Right Heart Cath Branch Associate jose Seat Joiner Chainstitch(s) yoanna Estimated Blood Loss 5 Medication(s) Fentanyl, Versed, Lidocaine 1% Summary of Findings RIGHT HEART CATHETERIZATION 18 gauge IV placed in antecubital vein in trestle mainternance laborer holding area under sterile conditions. IV exchanged for 6Fr [place] 6Fr [place] navigated to heart under fluoroscopic guidance. RA 4 RV 45/8 PA 48/13 (28) PCW 7 On room air pulse ox sat 80% PaSat 43% On 10L 02 pulse ox sat 99% PaSat 59% Reese CO/CI 4.9/2.2 Thermo CO/CI 4.9/2.2 Transpulmonary gradient - 21 PVR - 4.3 Summary: 1. Normal intracardiac filling pressures. Preserved cardiac output. 2. Mild pulmonary hypertension (likely WHO group 2) 3. Resting hypoxia (off supplemental oxygen 02 sats down to 80%) Recommendations: Continued follow-up with pulmonary Consideration for home 02 Hemodynamics Rest Ao: -- Final Ao: -- LV: -- Recommendations Medical therapy and/or Counseling Specimens None Radiation Exposure (mGy) 231 Contrast (mls) None Fluids (cc crystalloids) 80 Drains none Anesthesia none Procedural Complication(s) None Disposition Internal Sales Holding/Recovery ACC Data Cardiac Status Clinical evaluation leading to the procedure CAD Presntation: Sx unlikely to be ischemic Intraprocedure Events Significant Dissection: No Perforation: No
--- NOTE | 2016-08-07 09:59 | Discharge Instructions ---
Discharge Instructions Procedure Procedure Date: Aug 07, 2016. Reason for Visit: Pulmonary Hypertension * To Do*. Discharge Discharge Date: Aug 07, 2016. Discharge Diagnosis: Mild pulmonary hypertension Last Recorded Wt (Kilograms): 115 Anesthesia Post Anesthesia Instructions: If you have had IV Sedation: * Do not drive today. * Resume driving when surgeon permits. * Do not make important decisions or sign legal documents today. * Call surgeon for: 1. Temperature elevations greater than 101 degrees F. 2. Uncontrollable pain. 3. Excessive bleeding. 4. Persistent nausea and vomiting. 5. Medication intolerance (nausea, vomiting or rash). * For nausea and vomiting use only clear liquids such as: tea, soda, bouillon until nausea subsides, then gradually increase diet as tolerated. * If you have any concerns or questions, call your surgeon's office. If physician is unavailable and it is an emergency, call 911 or go to the nearest emergency room. Instructions Activity Recommendations: resume regular activity (Tomorrow) Recommended Home Diet: resume previous diet Allergies: Coded Allergies: Iodinated Diagnostic Agents (Verified Allergy, Mild, itching in groin area , 06/20/16) Penicillins (Verified Adverse Reaction, Unknown, OUT OF IT, 06/20/16) Follow Up Follow-up with: Pulmonary as scheduled. [place] Recommendations: Call your doctor if: * Temperature above 101 degrees * Pain not relieved by pain medicine ordered * There is increased drainage or redness from any incision * You have any unanswered questions or concerns. Your Doctors Instructions noted above were prepared by provider Reinaldo Jenkins. Patient Signature Section: Patient Instructions Signature Page Bart Julio Patient (or Guardian) Signature/Date: I have read and understand the instructions given to me by my caregivers. Caregiver/RN/Doctor Signature/Date: The above-named patient and/or guardian has received patient instructions on this date. + Original Patient Signature Page (only) stays with chart. Please make copy for patient.
[2016-08-07 10:15] VITALS: BP 131/68; PULSE 64; O2SAT 88
== END | disposition home or self-care (01) ==
LOC: C.CATH 06:48
PROVIDERS: ATTEND Internal Medicine Interventional Cardiology
DX: I27.2 Other secondary pulmonary hypertension (principal); I25.10 Atherosclerotic heart disease of native coronary artery without angina pectoris; J44.9 Chronic obstructive pulmonary disease, unspecified; I10 Essential (primary) hypertension; R09.02 Hypoxemia; R06.02 Shortness of breath; E66.9 Obesity, unspecified; Z87.891 Personal history of nicotine dependence; E11.9 Type 2 diabetes mellitus without complications; J84.10 Pulmonary fibrosis, unspecified; E78.5 Hyperlipidemia, unspecified; Z85.51 Personal history of malignant neoplasm of bladder; I12.9 Hypertensive chronic kidney disease with stage 1 through stage 4 chronic kidney disease, or unspecified chronic kidney disease; N18.3 Chronic kidney disease, stage 3 (moderate); Z90.79 Acquired absence of other genital organ(s); K21.9 Gastro-esophageal reflux disease without esophagitis; N25.81 Secondary hyperparathyroidism of renal origin; I25.2 Old myocardial infarction; Z87.11 Personal history of peptic ulcer disease; Z90.6 Acquired absence of other parts of urinary tract; Z79.82 Long term (current) use of aspirin; Z79.84 Long term (current) use of oral hypoglycemic drugs

== ENCOUNTER 2016-12-27 09:31 | Observation (INO) | payer OTHER ==
[2016-12-27] VITALS (7 sets, daily range): BP systolic 103–112; BP diastolic 54–69; PULSE 58–91; TEMP 36.5–37.1; O2SAT 92–95; Ht 165.1 cm; Wt 119.1 kg
[~2016-12-27] VITALS: Ht 165.1 cm; Wt 119.1 kg
[~2016-12-27 09:31] MED LIST changes: -ALUMSUS2 PO; -ASCO100T PO; -ASPEC81 PO; -BACL10TA PO; -IPRASOL4 INH; -NTRSLP4 SL; -PRED10TA PO; -SILD1TAB19 PO
[2016-12-27] MEDS ORDERED: ASPIRIN 81 MG CHEW PO STA (09:53)
[2016-12-27] MEDS ORDERED: ALBUT/IPRATROP 3MG/0.5MG NEB 3 ML VIAL INH STA (09:53)
--- NOTE | 2016-12-27 09:54 | EMERGENCY ROOM VISIT NOTE ---
History Report prepared by Heather: Zunilda Joel Under the Supervision of: Dr. Ramirez Guillen M.D. First contact with patient: 09:43 Chief Complaint: CARDIAC ASSESSMENT Stated Complaint: TIGHTNESS IN CHEST Nursing Triage Summary: patient c/o intermittent midsternal chest tightness for past week. patient states pain increased today after CT scan of chest. patient states he went to the car but decided to come to ER. patient states when chest tightness occurs he feels SOB. denies chest pain in triage. robert wears 3LNC History of Present Illness The patient is a 71 year old male who presents to the Emergency Room with complaints of intermittent chest pain that began two weeks ago, but worsened over the last four days He describes his discomfort as a spasm and tightness. The patient states that the pain is becoming more regular. He states that he was getting CT scan of his chest today and notes that he developed the pain while there. He additionally notes shortness of breath with his discomfort. The patient states that he put a heating pain on his chest last evening to help him sleep, noting that it slightly alleviated his pain. He denies any increased cough. The patient states that he was recently started on a Prednisone taper. He reports that his pain can help to be alleviated with his inhaler and deep breathing. Source of History: patient Onset: two weeks, four days Position: chest Quality: other (tightness, spasm) Timing: intermittent, worsening Modifying Factors (Relieving): other (heating pad, deep breathing and inhaler) Associated Symptoms: + SOB Review of Systems See HPI for pertinent positives and negatives. A total of ten systems were reviewed and were otherwise negative. Past Medical & Surgical Medical Problems: (1) Bladder cancer (2) HTN (hypertension) (3) Myocardial infarction Surgical Problems: (1) History of urostomy Social History Smoking Status: Former Smoker Drug Use: none Marital Status: Occupation Status: retired Current/Historical Medications Scheduled Amlodipine (Norvasc), 10 MG PO QAM Ascorbic Acid (Vitamin C), 100 MG PO DAILY Aspirin (Aspirin), 325 MG PO QAM Atenolol (Tenormin), 50 MG PO QAM Ergocalciferol (Vitamin D 43242 Unit), 1 CAP PO WK Ferrous Sulfate (Iron), 325 MG PO BIDM Fish Oil ([place]-3), 3 CAP PO QAM Furosemide (Lasix), 40 MG PO Q2D Ipratropium-Albuterol (Duoneb), 1 TREATMENT INH QID Lisinopril (Zestril), 5 MG PO QAM Metformin HCl (Metformin HCl), 500 MG PO BID Pantoprazole (Protonix), 40 MG PO BID Potassium Chloride (Micro-K Ext Rel), 10 MEQ PO Q2D Prednisone Tab (Prednisone), 10 MG PO DIRECTED Sildenafil Citrate (Pulmonary (Sildenafil Citrate), 10 MG PO TID Simvastatin (Zocor), 20 MG PO QPM Tiotropium [place] (Spiriva Respimat), 2 PUFF INH DAILY Tiotropium [place]-Olodaterol (Stiolto Respimat 2.5-2.5 Mcg/Act), 2 PUFF PO DAILY Scheduled PRN Albuterol Hfa (Ventolin Hfa), 2-4 PUFFS INH Q6H PRN for SOB/Wheezing Baclofen (Lioresal), 5 MG PO TID PRN for UNDECIDED Allergies Coded Allergies: Iodinated Diagnostic Agents (Verified Allergy, Mild, itching in groin area , 06/20/16) Penicillins (Verified Adverse Reaction, Unknown, OUT OF IT, 06/20/16) Physical Exam Vital Signs Date Time Temp Pulse Resp B/P (MAP) Pulse Ox O2 Delivery O2 Flow Rate FiO2 12/27/16 10:53 97 20 134/75 95 Nasal Cannula 3.0 12/27/16 10:33 Nasal Cannula 2.0 12/27/16 10:33 Room Air 12/27/16 10:03 75 12/27/16 09:35 36.5 108 22 134/76 95 Nasal Cannula 3.0 Physical Exam GENERAL: Awake, alert, chronically ill-appearing, in mild distress HENT: Normocephalic, atraumatic. Oropharynx unremarkable. EYES: Normal conjunctiva. Sclera non-icteric. NECK: Supple. No nuchal rigidity. FROM. No JVD. RESPIRATORY: Diminished breath sounds throughout, scattered wheezes CARDIAC: Regular rate, normal rhythm. Extremities warm and well perfused. Pulses equal. ABDOMEN: Soft, non-distended. No tenderness to palpation. No rebound or guarding. No masses. RECTAL: Deferred. MUSCULOSKELETAL: Chest examination reveals no tenderness. The back is symmetrical on inspection without obvious abnormality. There is no CVA tenderness to palpation. No joint edema. LOWER EXTREMITIES: Calves are equal size bilaterally and non-tender. 1+ bilateral lower extremity edema. No discoloration. NEURO: Normal sensorium. No sensory or motor deficits noted. SKIN: No rash or jaundice noted. Medical Decision & Procedures ER Provider Diagnostic Interpretation: X-ray: Per my interpretation, radiologist review. CHEST ONE VIEW PORTABLE CLINICAL HISTORY: CHEST PAIN dyspnea COMPARISON STUDY: 06/20/2016 FINDINGS: Moderate stable cardiomegaly. Bibasilar parenchymal infiltrates versus components of early congestive failure. The upper lungs are clear. No evidence of pneumothorax. IMPRESSION: Bibasilar parenchymal infiltrates versus developing components of congestive failure The above report was generated using voice recognition software. It may contain grammatical, syntax or spelling errors. Electronically signed by: Harris Salvador M.D. 12/27/2016 10:33 AM Dictated Date/Time: 12/27/2016 10:33 AM Laboratory Results 12/27/16 10:05 Red Blood Count 3.66, Mean Corpuscular Volume 88.0, Mean Corpuscular Hemoglobin 27.0, Mean Corpuscular Hemoglobin Concent 30.7, Mean Platelet Volume 9.4, Neutrophils (%) (Auto) 92.1, Lymphocytes (%) (Auto) 3.4, Monocytes (%) (Auto) 4.0, Eosinophils (%) (Auto) 0.2, Basophils (%) (Auto) 0.0, Neutrophils # (Auto) 11.14, Lymphocytes # (Auto) 0.41, Monocytes # (Auto) 0.49, Eosinophils # (Auto) 0.02, Basophils # (Auto) 0.00 12/27/16 10:05 Test 12/27/16 10:05 White Blood Count 12.10 K/uL (4.8-10.8) Red Blood Count 3.66 M/uL (4.7-6.1) Hemoglobin 9.9 g/dL (14.0-18.0) Hematocrit 32.2 % (42-52) Mean Corpuscular Volume 88.0 fL (80-100) Mean Corpuscular Hemoglobin 27.0 pg (25-34) Mean Corpuscular Hemoglobin Concent 30.7 g/dl (32-36) Platelet Count 209 K/uL (130-400) Mean Platelet Volume 9.4 fL (7.4-10.4) Neutrophils (%) (Auto) 92.1 % Lymphocytes (%) (Auto) 3.4 % Monocytes (%) (Auto) 4.0 % Eosinophils (%) (Auto) 0.2 % Basophils (%) (Auto) 0.0 % Neutrophils # (Auto) 11.14 K/uL (1.4-6.5) Lymphocytes # (Auto) 0.41 K/uL (1.2-3.4) Monocytes # (Auto) 0.49 K/uL (0.11-0.59) Eosinophils # (Auto) 0.02 K/uL (0-0.5) Basophils # (Auto) 0.00 K/uL (0-0.2) RDW Standard Deviation 55.9 fL (36.4-46.3) RDW Coefficient of Variation 17.5 % (11.5-14.5) Immature Granulocyte % (Auto) 0.3 % Immature Granulocyte # (Auto) 0.04 K/uL (0.00-0.02) Anion Gap 8.0 mmol/L (3-11) Est Creatinine Clear Calc Drug Dose 45.8 ml/min Estimated GFR () 44.7 Estimated GFR (Non- 38.6 BUN/Creatinine Ratio 19.3 (10-20) Calcium Level 8.6 mg/dl (8.5-10.1) Total Bilirubin 0.8 mg/dl (0.2-1) Direct Bilirubin 0.2 mg/dl (0-0.2) Aspartate Amino Transf (AST/SGOT) 19 U/L (15-37) Alanine Aminotransferase (ALT/SGPT) 23 U/L (12-78) Alkaline Phosphatase 69 U/L (45-117) Pro-B-Type Natriuretic Peptide 1435 pg/ml (0-900) Total Protein 6.5 gm/dl (6.4-8.2) Albumin 3.0 gm/dl (3.4-5.0) Lipase 115 U/L (73-393) Laboratory results reviewed by me Medications Administered Medications (Trade) Dose Ordered Sig/Priyanka Route Start Time Stop Time Status Last Admin Dose Admin Albuterol/ Ipratropium (Duoneb) 3 ml NOW STAT INH 12/27/16 09:53 12/27/16 09:56 DC 12/27/16 10:20 3 ML Nitroglycerin (Nitrostat Tab) 0.4 mg NOW STAT SL 12/27/16 09:55 12/27/16 10:05 DC 12/27/16 10:21 0.4 MG Prednisone (PredniSONE TAB) 35 mg Taper DAILY PO 12/27/16 09:00 01/17/17 08:59 12/27/16 15:25 35 MG ECG Indication: chest pain, SOB/dyspnea Rate (beats per minute): 92 Rhythm: sinus rhythm Findings: 1st degree AV block, PVC, ST depression (Lateral), no acute ischemic change Comparison ECG Date: 06/20/16 Change: no significant change Change: Repeat EKG: Resolution of ST depression in V4-V6, sinus rhythm with Sinus arrhythmia, 90 beast per minute, normal axis. ED Course 0944: The patient was evaluated in room C6. A complete history and physical exam was performed. 0953: Ordered DuoNeb 3 ml INH. 0955: Ordered Nitroglycerin 0.4 mg SL. 1057: I reevaluated the patient and he is resting. I discussed the exam findings with him and I discussed the treatment plan. He verbalized complete understanding and agreement. He is going to be evaluated for further treatment. 1100: I discussed the patients case with Dr. Sigala [facility]. She is going to evaluate the patient for further treatment. Medical Decision I reviewed the patient's past medical history, medications, and the nursing notes as described above. The patient's presentation and history were concerning for ACS, CHF, COPD, pneumonia, bronchitis, dissection. The patient is a 71-year-old gentleman with a past medical history of COPD 2 L home O2 to emergency department with several days of intermittent chest pain and subsequent episode shortly prior to arrival after having a outpatient CT scan of his chest per history of present illness. On arrival the patient appears in no acute distress however during my interview he began to develop substernal chest pain that was debilitating that resolved with nitroglycerin. Otherwise he is afebrile with stable vital signs. EKG showed lateral ST depressions during episode of pain were which were similar to prior however when EKG repeated 15 minutes later when pain free ST depressions were resolved. Findings were concerning for dynamic EKG changes. Otherwise his troponin was negative. Chest x-ray with question of bibasilar infiltrates versus CHF. Given the patient is afebrile and on his baseline O2 requirement antibiotics and diuresis deferred at this time. WBC 12 nonspecific. BNP 1400. Case was discussed with hospital medicine and will admit the patient for further management. Medication Reconcilliation Current Medication List: was personally reviewed by me Blood Pressure Screening Patient's blood pressure: Normal blood pressure Blood pressure disposition: Did not require urgent referral Consults Time Called: 1058 Consulting Physician: SEVERO Huerta Returned Call: 1100 I discussed the patients case with SEVERO Huerta. She is going to evaluate the patient for further treatment. Impression Primary Impression: Substernal chest pain Scribe Attestation The scribe's documentation has been prepared under my direction and personally reviewed by me in its entirety. I confirm that the note above accurately reflects all work, treatment, procedures, and medical decision making performed by me. Departure Information Dispostion Being Evaluated By Hospitalist Referrals Harris Quiñonez M.D. (PCP)
[2016-12-27] MEDS ORDERED: NITROGLYCERIN 0.4 MG SL PER TAB CHARGE SL STA (09:55)
[2016-12-27] MEDS ORDERED: NITROGLYCERIN 0.4 MG SL PER TAB CHARGE ONE (09:56)
[2016-12-27 10:24] LABS: COMPLETE YES; EOS % 0.2 %; HEMATOCRIT 32.2 % (42-52); IG% 0.3 %; LYMPH % 3.4 %; LYMPH ABS # 0.41 K/uL (1.2-3.4); MEAN CORPUSCULAR HGB CONC 30.7 g/dl (32-36); MEAN PLATELET VOLUME 9.4 fL (7.4-10.4); NEUT % 92.1 %; PLATELET COUNT 209 K/uL (130-400); RED BLOOD COUNT 3.66 M/uL (4.7-6.1)
--- NOTE | 2016-12-27 10:35 | DIAGNOSTIC IMAGING REPORT ---
CHEST ONE VIEW PORTABLE CLINICAL HISTORY: CHEST PAIN dyspnea COMPARISON STUDY: 06/20/2016 FINDINGS: Moderate stable cardiomegaly. Bibasilar parenchymal infiltrates versus components of early congestive failure. The upper lungs are clear. No evidence of pneumothorax. IMPRESSION: Bibasilar parenchymal infiltrates versus developing components of congestive failure The above report was generated using voice recognition software. It may contain grammatical, syntax or spelling errors. Electronically signed by: Harris Salvador M.D. 12/27/2016 10:33 AM Dictated Date/Time: 12/27/2016 10:33 AM
[2016-12-27 10:44] LABS: ALT/SGPT 23 U/L (12-78); AST/SGOT 19 U/L (15-37); BLOOD UREA NITROGEN 34 mg/dl (7-18); BUN/CREATININE RATIO 19.3 (10-20); CALCIUM 8.6 mg/dl (8.5-10.1); CARBON DIOXIDE 24 mmol/L (21-32); CHLORIDE 110 mmol/L (98-107); CREATININE 1.74 mg/dl (0.60-1.40); GLUCOSE 129 mg/dl (70-99); SODIUM 142 mmol/L (136-145)
[2016-12-27 10:47] LABS: ALKALINE PHOSPHATASE 69 U/L (45-117)
[2016-12-27] MEDS ORDERED: ASCO100T4 PO (10:55)
[2016-12-27] MEDS ORDERED: SILD1TAB19 PO (10:55)
[2016-12-27] MEDS ORDERED: PRED10TA PO (10:55)
[2016-12-27] MEDS ORDERED: BACL10TA PO (10:55)
[2016-12-27] MEDS ORDERED: IPRASOL4 INH (10:55)
[2016-12-27] MEDS ORDERED: ALBUTEROL HFA 8 GM INHALER INH PRN (12:45)
[2016-12-27] MEDS ORDERED: MAGNESIUM HYDROXIDE SUSP 30 ML UDC PO PRN (12:45)
[2016-12-27] MEDS ORDERED: ACETAMINOPHEN 325 MG TAB PO PRN (12:45)
[2016-12-27] MEDS ORDERED: BACLOFEN 10 MG TAB PO PRN (12:45)
[2016-12-27] MEDS ORDERED: NITROGLYCERIN 0.4 MG SL PER TAB CHARGE SL PRN (12:45)
[2016-12-27] MEDS ORDERED: ONDANSETRON INJ 2 MG/ML 2 ML VIAL IV PRN (12:45)
[2016-12-27] MEDS ORDERED: LEVOFLOXACIN / D5W 750 MG in PREMIXED IN D5W 150 ML IV SCH (12:45)
[2016-12-27] MEDS ORDERED: ALBUT/IPRATROP 3MG/0.5MG NEB 3 ML VIAL INH SCH (13:00)
--- NOTE | 2016-12-27 13:14 | History and Physical ---
History & Physical Date & Time of Service: Dec 27, 2016 at 12:47 Chief Complaint: Tightness In Chest Primary Care Physician: Harris Quiñonez M.D. History of Present Illness Source: patient, spouse 71 y/o M c/o chest pain. Pt states he has been having chest pain for 1.5-2 weeks. He states it is getting more frequent, especially over the last 3-4 days. It can happen at any time, but it mostly seems to happen when he is lying down and is gets better when he sits up. The pain is substernal and does not radiate. He can reproduce the pain when he pushes in the same area. He does not have SOB. In between episodes of pain, he feels at his baseline. No additional fatigue. He does get LE muscle cramping, but this is not new for him. He has been eating without issue. He does not think that the pain is related to meal times. Pt has had 3 episode of this chest pain since waking this AM. The second episode was witnessed by the ED physician and resolved with nitro. An EKG done during this episode showed minor ST depressions that resolved after the pain resolved. Pt has been on steroids for the last 4 days and there has been no improvement in his chest pain. Pt denies fever, abd pain, n/v/c/d, LE pain. Pt generally has LE swelling that is at baseline. He used to take lasix QD, but was admitted to [facility] for dehydration and it was decided his lasix should be Q2d to help with this. His K was stopped as he was frequently having increased K levels. Pt had 3 stents placed s/p ME in 1998. He has been on aspirin 325mg since that time. He had a R heart cath done 08/07/[address] Jenkins which showed mild pulm HTN. This was done after an ECHO on 08/05/16 showing EF 55% and possible pulm HTN. Pt is unsure why he had this testing done initially, but it appears to have been ordered by Dane Hair, so possibly related to SOB? Past Medical/Surgical History Medical Problems: (1) Bladder cancer Status: Resolved (2) HTN (hypertension) Status: Chronic (3) Myocardial infarction Status: Resolved Surgical Problems: (1) History of urostomy Status: Chronic Bladder cancer s/p bladder removal and permanent urostomy, s/p prophylactic prostatectomy HTN DM Pulmonary HTN on 3L O2 continuous, increased with ambulation GERD CHF Hyperlipidemia Hx of ME s/p stents 1998 L pulmonary nodule CKD III Secondary hyperparathyroidism Family History Neg for ME Social History Smoking Status: Former Smoker (quit 1998) Smokeless Tobacco Use: Yes (1 can every 3-4 days, tapering) Alcohol Use: none Drug Use: none Marital Status: Occupational Status: retired Immunizations History of Influenza Vaccine: No History of Tetanus Vaccine?: No History of Pneumococcal: No History of Hepatitis B Vaccine: No Multi-Drug Resistant Organisms History of MDRO: No Allergies Coded Allergies: Iodinated Diagnostic Agents (Verified Allergy, Mild, itching in groin area , 06/20/16) Penicillins (Verified Adverse Reaction, Unknown, OUT OF IT, 06/20/16) Home Medications Scheduled Amlodipine (Norvasc), 10 MG PO QAM Ascorbic Acid (Vitamin C), 100 MG PO DAILY Aspirin (Aspirin), 325 MG PO QAM Atenolol (Tenormin), 50 MG PO QAM Ergocalciferol (Vitamin D 62843 Unit), 1 CAP PO WK Ferrous Sulfate (Iron), 325 MG PO BIDM Fish Oil ([place]-3), 3 CAP PO QAM Furosemide (Lasix), 40 MG PO Q2D Ipratropium-Albuterol (Duoneb), 1 TREATMENT INH QID Lisinopril (Zestril), 5 MG PO QAM Metformin HCl (Metformin HCl), 500 MG PO BID Pantoprazole (Protonix), 40 MG PO BID Potassium Chloride (Micro-K Ext Rel), 10 MEQ PO Q2D Prednisone Tab (Prednisone), 10 MG PO DIRECTED Sildenafil Citrate (Pulmonary (Sildenafil Citrate), 10 MG PO TID Simvastatin (Zocor), 20 MG PO QPM Tiotropium [place] (Spiriva Respimat), 2 PUFF INH DAILY Tiotropium [place]-Olodaterol (Stiolto Respimat 2.5-2.5 Mcg/Act), 2 PUFF PO DAILY Scheduled PRN Albuterol Hfa (Ventolin Hfa), 2-4 PUFFS INH Q6H PRN for SOB/Wheezing Baclofen (Lioresal), 5 MG PO TID PRN for UNDECIDED Review of Systems Pertinent positives and negatives reviewed in HPI--all others negative Physical Exam Vital Signs Date Time Temp Pulse Resp B/P (MAP) Pulse Ox O2 Delivery O2 Flow Rate FiO2 12/27/16 10:53 97 20 134/75 95 Nasal Cannula 3.0 12/27/16 10:33 Nasal Cannula 2.0 12/27/16 10:33 Room Air 12/27/16 10:03 75 12/27/16 09:35 36.5 108 22 134/76 95 Nasal Cannula 3.0 General Appearance: no apparent distress, + obese Head: normocephalic, atraumatic Eyes: normal inspection, EOMI ENT: hearing grossly normal Neck: supple Respiratory/Chest: normal breath sounds, no respiratory distress Cardiovascular: regular rate, rhythm, normal peripheral pulses Abdomen/GI: non tender, soft Extremities/Musculoskelatal: no calf tenderness, + pedal edema (1+) Neurologic/Psych: alert, normal mood/affect, oriented x 3 Skin: normal color, warm/dry Diagnostics Laboratory Results Results Past 24 Hours Test 12/27/16 10:05 Range/Units White Blood Count 12.10 4.8-10.8 K/uL Red Blood Count 3.66 4.7-6.1 M/uL Hemoglobin 9.9 14.0-18.0 g/dL Hematocrit 32.2 42-52 % Mean Corpuscular Volume 88.0 80-100 fL Mean Corpuscular Hemoglobin 27.0 25-34 pg Mean Corpuscular Hemoglobin Concent 30.7 32-36 g/dl Platelet Count 209 130-400 K/uL Mean Platelet Volume 9.4 7.4-10.4 fL Neutrophils (%) (Auto) 92.1 % Lymphocytes (%) (Auto) 3.4 % Monocytes (%) (Auto) 4.0 % Eosinophils (%) (Auto) 0.2 % Basophils (%) (Auto) 0.0 % Neutrophils # (Auto) 11.14 1.4-6.5 K/uL Lymphocytes # (Auto) 0.41 1.2-3.4 K/uL Monocytes # (Auto) 0.49 0.11-0.59 K/uL Eosinophils # (Auto) 0.02 0-0.5 K/uL Basophils # (Auto) 0.00 0-0.2 K/uL RDW Standard Deviation 55.9 36.4-46.3 fL RDW Coefficient of Variation 17.5 11.5-14.5 % Immature Granulocyte % (Auto) 0.3 % Immature Granulocyte # (Auto) 0.04 0.00-0.02 K/uL Sodium Level 142 136-145 mmol/L Potassium Level 5.0 3.5-5.1 mmol/L Chloride Level 110 98-107 mmol/L Carbon Dioxide Level 24 21-32 mmol/L Anion Gap 8.0 3-11 mmol/L Blood Urea Nitrogen 34 7-18 mg/dl Creatinine 1.74 0.60-1.40 mg/dl Est Creatinine Clear Calc Drug Dose 45.8 ml/min Estimated GFR () 44.7 Estimated GFR (Non- 38.6 BUN/Creatinine Ratio 19.3 10-20 Random Glucose 129 70-99 mg/dl Calcium Level 8.6 8.5-10.1 mg/dl Total Bilirubin 0.8 0.2-1 mg/dl Direct Bilirubin 0.2 0-0.2 mg/dl Aspartate Amino Transf (AST/SGOT) 19 15-37 U/L Alanine Aminotransferase (ALT/SGPT) 23 12-78 U/L Alkaline Phosphatase 69 45-117 U/L Troponin I < 0.015 0-0.045 ng/ml Pro-B-Type Natriuretic Peptide 1435 0-900 pg/ml Total Protein 6.5 6.4-8.2 gm/dl Albumin 3.0 3.4-5.0 gm/dl Lipase 115 73-393 U/L Diagnostic Radiology CXR: question of PNA vs early CHF EKG ST depressions with chest pain, later resolved Impression Assessment and Plan 71 y/o M who was admitted for observation for chest pain Chest pain: Uncertain etiology, possibly related to pulmonary HTN vs atypical angina Pt noted to have ST depressions during an episode of pain that resolved with resolution of pain after being given nitro Pt's pain is also reproducible with palpation CXR suggests PNA vs early CHF, and pt does have a mildly elevated WBC but he has also been on prednisone and is afebrile without other sx c/w PNA CT chest is neg for acute issues Also t/c costochondritis given reproducible pain and most episode occur with lying flat, however pt has been on prednisone for 4 days and his pain has been increasing Trop neg x1, serials pending Recent R heart cath and ECHO 08/2016 for pulm HTN evaluation Pt follows with Dr. Jenkins, c/s pending Given recent ECHO, I will hold on repeat and leave further testing to his discretion given recent studies ARF: in the setting of recent hydration Baseline looks to be around 1.4 Monitor for now, will not give IVF given CHF hx DM: stable, continue home meds HTN: stable, continue home meds CAD: continue aspirin 325mg Pulm HTN: continue sildenafil, O2 TONY: home CPAP CHF: lasix 40mg QOD which was decreased from QD due to recent hospitalization for dehydration thought to be due to lasix use CXR with question of early CHF, however not noted on CT Hx of bladder cancer: urostomy in place and no issues per pt Smokeless tobacco use: has been tapering and is down to 1 can Q3-4 days Declines nicotine patch Other: Full code DM AHA diet SCDs for DVT proph given likely short duration of stay Level of Care Telemetry Resuscitation Status FULL RESUSCITATION VTE Prophylaxis VTE Risk Assessment Done? Y/N: Yes Risk Level: Low
[2016-12-27] MEDS ORDERED: IV FLUIDS COMPLETED PRN (13:45)
[2016-12-27] MEDS ORDERED: IBUPROFEN 800 MG TAB PO SCH (14:00)
[2016-12-27] MEDS: STIOLTO~ORDER AWAITING ACTION SCH ×2 (16:00→21:49)
[2016-12-27] MEDS: METFORMIN HCL 500 MG TAB PO SCH (16:50)
[2016-12-27] MEDS: FERROUS SULFATE 325 MG TAB PO SCH (16:50)
[2016-12-27] MEDS: ALBUT/IPRATROP 3MG/0.5MG NEB 3 ML VIAL INH SCH (19:27)
[2016-12-27] MEDS: PANTOprazole SOD 40 MG TAB PO SCH (20:02)
[2016-12-27] MEDS: SILDENAFIL CITRATE 20 MG TAB PO SCH (20:02)
[2016-12-27] MEDS ORDERED: SIMVASTATIN 20 MG TAB PO SCH (21:00)
[2016-12-27] MEDS ORDERED: MoRPHine SULFATE 2 MG/ML CARP ONE (21:43)
[2016-12-27] MEDS ORDERED: NURSING VERBAL MED ORDER ONE ×2 (21:45→23:45)
[2016-12-27] MEDS ORDERED: MoRPHine SULFATE 2 MG/ML CARP IV ONE (22:00)
[2016-12-27] MEDS ORDERED: OXYCODONE/ACETAMINOPHEN 5-325 TAB PO ONE (23:45)
[2016-12-28] VITALS (9 sets, daily range): BP systolic 107–127; BP diastolic 57–79; PULSE 66–114; TEMP 36.4–37.3; O2SAT 90–98
[2016-12-28] MEDS ORDERED: NURSING VERBAL MED ORDER ONE (01:00)
[2016-12-28] MEDS ORDERED: ALUMINUM/MAGNESIUM SUSP 18 ML, LIDOCAINE HCL 2% VISCOUS SOLN 6 ML, BARCODE IDENTIFIER 1 EA PO ONE ×2 (01:00)
[2016-12-28] MEDS: ALBUT/IPRATROP 3MG/0.5MG NEB 3 ML VIAL INH SCH ×2 (07:22→11:20)
[2016-12-28 07:34] LABS: HEMATOCRIT 29.7 % (42-52); MEAN CELL VOLUME 87.1 fL (80-100); MEAN CORPUSCULAR HEMOGLOBIN 26.7 pg (25-34); MEAN CORPUSCULAR HGB CONC 30.6 g/dl (32-36); MEAN PLATELET VOLUME 9.5 fL (7.4-10.4); PLATELET COUNT 241 K/uL (130-400); RED BLOOD COUNT 3.41 M/uL (4.7-6.1)
[2016-12-28 07:35] LABS: BUN/CREATININE RATIO 26.7 (10-20); CALCIUM 8.7 mg/dl (8.5-10.1); CREATININE 1.41 mg/dl (0.60-1.40); POTASSIUM 5.1 mmol/L (3.5-5.1)
[2016-12-28] MEDS: METFORMIN HCL 500 MG TAB PO SCH (07:50)
[2016-12-28] MEDS: FERROUS SULFATE 325 MG TAB PO SCH (07:50)
[2016-12-28] MEDS: PANTOprazole SOD 40 MG TAB PO SCH (08:06)
[2016-12-28] MEDS: SILDENAFIL CITRATE 20 MG TAB PO SCH ×2 (08:07→14:15)
[2016-12-28] MEDS ORDERED: LISINOPRIL 5 MG TAB PO SCH (09:00)
[2016-12-28] MEDS ORDERED: OMEGA-3 (PURIFIED FISH OIL) 1 GM CAP PO SCH (09:00)
[2016-12-28] MEDS ORDERED: ASCORBIC ACID 100 MG PO SCH (09:00)
[2016-12-28] MEDS ORDERED: AMLODIPINE BESYLATE 5 MG TAB PO SCH (09:00)
[2016-12-28] MEDS ORDERED: ASPIRIN 325 MG ECTAB PO SCH (09:00)
[2016-12-28] MEDS ORDERED: FUROSEMIDE 40 MG TAB PO SCH (09:00)
--- NOTE | 2016-12-28 12:11 | Cardiology Consultation ---
Cardiology Consultation Date of Consultation: Dec 28, 2016. Requesting Physician: Dr. Sigala Attending Physician: Dr. Jenkins Reason for Consultation: Chest pain Pt evaluation today including: conversation w/ patient, physical exam, chart review, lab review, review of studies, review of inpatient medication list, conversation w/ attending History of Present Illness Mr. Julio is a 71-year-old male with a history of coronary artery disease, type 2 DM, hypertension, dyslipidemia, COPD with hypoxia, and pulmonary fibrosis who presented to the Emergency Department yesterday with complaints of intermittent substernal chest pain over the previous 2 weeks. He describes the pain as a pressure or a tightness, and he would typically note the discomfort when he would lie down to sleep or while sitting in his chair during the day. The discomfort was non-radiating, and he had no associated symptoms of nausea, vomiting, or diaphoresis. He had some mild shortness of breath with the discomfort. The pain improved with sitting up and sometimes with using his inhaler. It typically lasted about 5 minutes in duration. He denies any exertional chest pain. He is currently being seen in his room in 239 bed 1. He reports that he was given Maalox with Lidocaine last evening, and since then, he has had no recurrence of the chest discomfort. He was able to sleep comfortably in bed last evening without having to prop himself up. He notes chronic exertional dyspnea, which he feels may be gradually worsening. He denies orthopnea, PND, or edema. He notes occasional lightheadedness upon standing, which resolves quickly. He denies syncope or presyncope. He denies palpitations. He notes occasional bleeding from his hemorrhoids. He denies melena or hematuria. He denies cerebrovascular symptoms. Review of Systems: As noted in HPI. All other 10 point ROS reviewed and otherwise negative. Past Medical/Surgical History 1. Type 2 DM 2. Hypertension 3. Severe COPD with chronic Hypoxia 4. Pulmonary Hypertension 5. Pulmonary Fibrosis 6. Dyslipidemia 7. Bladder CA and renal lesion s/p radical cystoprostatectomy with ileal conduit and cryotherapy 8. Stage III CKD 9. CAD s/p NC s/p Mid LAD stent and Chronic Total Occlusion of Proximal RCA Family History Noncontributory given his own disease. Social History Smoking Status: Former Smoker History of Alcohol Use: No He quit smoking in 1998. He smoked up to 2 packs per day for over 10 years. He denies alcohol or illicit drug use. Allergies Coded Allergies: Iodinated Diagnostic Agents (Verified Allergy, Mild, itching in groin area , 06/20/16) Penicillins (Verified Adverse Reaction, Unknown, OUT OF IT, 06/20/16) Medications Current Inpatient Medications Medications (Trade) Dose Ordered Sig/Priyanka Route Start Time Stop Time Status Last Admin Dose Admin Acetaminophen (Tylenol Tab) 650 mg Q4H PRN PO 12/27/16 12:45 01/26/17 12:44 Magnesium Hydroxide (Milk Of Magnesia Susp) 30 ml Q12H PRN PO 12/27/16 12:45 01/26/17 12:44 Ondansetron HCl (Zofran Inj) 4 mg Q6H PRN IV 12/27/16 12:45 01/26/17 12:44 Nitroglycerin (Nitrostat Tab) 0.4 mg UD PRN SL 12/27/16 12:45 01/26/17 12:44 12/27/16 23:41 0.4 MG Albuterol (Ventolin Hfa Inhaler) 2 puffs Q6H PRN INH 12/27/16 12:45 01/26/17 12:44 Amlodipine Besylate (Norvasc Tab) 10 mg QAM PO 12/28/16 09:00 01/27/17 08:59 12/28/16 08:02 10 MG Aspirin (Ecotrin Tab) 325 mg QAM PO 12/28/16 09:00 01/27/17 08:59 12/28/16 08:01 325 MG Atenolol (Tenormin Tab) 50 mg QAM PO 12/28/16 09:00 01/27/17 08:59 12/28/16 08:07 50 MG Baclofen (Lioresal Tab) 5 mg TID PRN PO 12/27/16 12:45 01/26/17 12:44 Fish Oil ([place]-3 (Purified Fish Oil) Cap) 1 gm QAM PO 12/28/16 09:00 01/27/17 08:59 12/28/16 08:03 1 GM Furosemide (Lasix Tab) 40 mg Q2D@0900 PO 12/28/16 09:00 01/27/17 08:59 12/28/16 08:02 40 MG Lisinopril (Zestril Tab) 5 mg QAM PO 12/28/16 09:00 01/27/17 08:59 12/28/16 08:08 5 MG Metformin HCl (Glucophage Tab) 500 mg BIDM PO 12/27/16 16:45 01/26/17 16:44 12/28/16 07:50 500 MG Pantoprazole Sodium (Protonix Tab) 40 mg BID PO 12/27/16 21:00 01/26/17 20:59 12/28/16 08:06 40 MG Prednisone (PredniSONE TAB) 35 mg Taper DAILY PO 12/27/16 09:00 01/17/17 08:59 12/28/16 08:04 35 MG Sildenafil Citrate (Revatio Tab) 10 mg TID PO 12/27/16 21:00 01/26/17 20:59 12/28/16 08:07 10 MG Simvastatin (Zocor Tab) 20 mg QPM PO 12/27/16 21:00 01/26/17 20:59 12/27/16 20:01 20 MG Ferrous Sulfate (Feosol Tab) 325 mg BIDM PO 12/27/16 16:45 01/26/17 17:59 12/28/16 07:50 325 MG Miscellaneous Information (Order Awaiting Action) 1 ea QS N/A 12/27/16 16:00 01/26/17 15:59 Miscellaneous Information (Order Awaiting Action) 1 ea QS N/A 12/27/16 16:00 01/26/17 15:59 Miscellaneous (Iv Fluids Completed) 1 ea PRN PRN N/A 12/27/16 13:45 12/27/17 13:44 Albuterol/ Ipratropium (Duoneb) 3 ml QIDR INH 12/27/16 20:00 01/26/17 19:59 12/28/16 07:22 3 ML Physical Exam Vital Signs Past 12 Hours Date Time Temp Pulse Resp B/P (MAP) Pulse Ox O2 Delivery O2 Flow Rate FiO2 12/28/16 08:00 98 Nasal Cannula 2.0 12/28/16 07:59 36.8 66 19 127/57 (80) 98 Nasal Cannula 3.0 12/28/16 07:22 66 18 90 Nasal Cannula 3.0 12/28/16 04:00 Room Air 3.0 12/28/16 03:13 37.3 114 20 107/59 (75) 95 Nasal Cannula 3.0 12/28/16 00:01 95 Room Air 3.0 12/27/16 23:46 37.0 71 20 112/63 (79) 92 Nasal Cannula 3.0 Constitutional: Alert, oriented, in no acute distress. Supplemental oxygen via nasal cannula HEENT: Head is atraumatic and normocephalic. EOMs intact. Sclera anicteric. Face is symmetric. No perioral cyanosis. Mucous membranes moist. Neck: Supple, no appreciable JVD, no carotid bruits Pulmonary: Normal respiratory effort, clear to auscultation bilaterally Cardiac: Regular rate and rhythm, normal S1 and S2, no gallops, no rubs, no obvious murmurs Extremities: No clubbing, cyanosis, or edema. Pulses intact Abdomen: Normal bowel sounds, soft, non-tender, no abdominal mass palpated Skin: Normal skin color, turgor, and pigmentation, no rash, no skin lesions Neurological: Oriented to person, place, and time Data Laboratory Results: Last 24 Hours Test 12/27/16 16:13 12/27/16 16:29 12/27/16 19:57 12/27/16 20:01 Bedside Glucose 175 mg/dl 122 mg/dl Troponin I < 0.015 ng/ml < 0.015 ng/ml Test 12/27/16 22:02 12/28/16 06:44 12/28/16 07:13 Troponin I < 0.015 ng/ml White Blood Count 11.10 K/uL Red Blood Count 3.41 M/uL Hemoglobin 9.1 g/dL Hematocrit 29.7 % Mean Corpuscular Volume 87.1 fL Mean Corpuscular Hemoglobin 26.7 pg Mean Corpuscular Hemoglobin Concent 30.6 g/dl RDW Standard Deviation 54.9 fL RDW Coefficient of Variation 17.3 % Platelet Count 241 K/uL Mean Platelet Volume 9.5 fL Sodium Level 139 mmol/L Potassium Level 5.1 mmol/L Chloride Level 106 mmol/L Carbon Dioxide Level 24 mmol/L Anion Gap 8.0 mmol/L Blood Urea Nitrogen 38 mg/dl Creatinine 1.41 mg/dl Est Creatinine Clear Calc Drug Dose 57.5 ml/min Estimated GFR () 57.7 Estimated GFR (Non- 49.8 BUN/Creatinine Ratio 26.7 Random Glucose 127 mg/dl Calcium Level 8.7 mg/dl Hepatitis C Antibody Screen NEG Bedside Glucose 139 mg/dl ECHOCARDIOGRAM 07/04/2016: 1. Normal LV size and systolic function. 2. LVEF 55%, No RWMA's. 3. Mild to moderate MR. 4. Moderate TR, mild PI. 5. PASP = 63 mmHg. 6. Moderate right atrial dilatation. 7. Moderately dilated RV with mildly decreased RV systolic function. CARDIAC CATHETERIZATION 07/17/2016: 1. LMCA -- Normal. 2. LAD -- Patent Midvessel stent. 3. D1 -- 60% Ostial stenosis. 4. LCx and OM branches -- Normal. 5. RCA -- 100% Proximal Occlusion (Chronic) 6. L-to-R Collaterals were present. CXR: Bibasilar parenchymal infiltrates versus developing components of congestive failure EKGs have shown sinus rhythm with PACs and nonspecific ST and T wave abnormality. Telemetry reviewed: Sinus rhythm with frequent PACs Assessment & Plan ASSESSMENT/PLAN: 1. Chest discomfort: His discomfort occurs at rest and is worse with lying down. He noted substantial improvement after using Maalox, which points to a gastrointestinal cause. He has no evidence of ACS as his cardiac enzymes have been negative, and EKGs have shown nonspecific abnormalities only. Recommend continued treatment for GERD with Maalox. 2. Coronary artery disease: His most recent cardiac catheterization in July 2016 demonstrated patent LAD stents, COUTURIERE of RCA with left to right collaterals, and 60% ostial D1 stenosis. He denies any exertional chest pain. His recent chest discomfort appears to be GI in nature as noted above. Continue aspirin, statin, and beta daksha therapy. 3. Pulmonary hypertension: He has known pulmonary hypertension and was initiated on Sildenafil in September of this year. He continues to note difficulties with breathing. An echocardiogram has been ordered to reevaluate his pulmonary pressures as well as his right heart size and function. Further treatment of his pulmonary hypertension can be made as an outpatient. He follows with Dr. Cameron and Dane Hair PA-C. 4. Hypertension: His blood pressure is well controlled. Continue current medical therapy. Thank you for allowing us to see this patient in consultation. The patient was discussed with Dr. Jenkins, who will also be in to see the patient later today.
--- NOTE | 2016-12-28 13:33 | Medical Student: [facility] ---
Med Student History & Physical Date & Time of Service: Dec 28, 2016 at 12:56 Chief Complaint: Substernal Chest Pain Primary Care Physician: Harris Quiñonez M.D. History of Present Illness Source: patient Mr. Julio is a 71 yo male with history notable for bladder cancer s/ p bladder removal, DM, [place] in ' s/p 3 stents, pulmonary hypertension, and hyperlipidemia who presented for 1.5-2 weeks of non-exertional chest pain that occurs when laying down and relieved by sitting up. Pain is described as well localized, substernal, and stabbing without radiation. No shortness of breath, no foul smelling burping, no fatigue, no edema, no cough, no fever, no chills, no n/v/d/c. In the ED, EKG showed ST depression during an episode and pain and EKG changes resolved following Nitro sublingual, otherwise no notable findings. Troponin, CK -MB, Lipase, LFTs, CXR normal. CBC notable for anemia (H/H of 9.1/29.7) and leukocytosis of 12.1 trended down to 11.10. Past Medical/Surgical History Medical Problems: (1) Chronic lung disease Status: Acute (2) COPD exacerbation Status: Acute (3) Shortness of breath Status: Acute (4) Substernal chest pain Status: Acute Social History Smoking Status: Former Smoker Smokeless Tobacco Use: Yes (1 can every 3-4 days, tapering) Alcohol Use: none Drug Use: none Marital Status: Occupational Status: retired Immunizations History of Influenza Vaccine: No History of Tetanus Vaccine?: No History of Pneumococcal: No History of Hepatitis B Vaccine: No Allergies Coded Allergies: Iodinated Diagnostic Agents (Verified Allergy, Mild, itching in groin area , 06/20/16) Penicillins (Verified Adverse Reaction, Unknown, OUT OF IT, 06/20/16) Medications Albuterol Hfa (Ventolin Hfa), 2-4 PUFFS INH Q6H PRN for SOB/Wheezing Amlodipine (Norvasc), 10 MG PO QAM Ascorbic Acid (Vitamin C), 100 MG PO DAILY Aspirin (Aspirin), 325 MG PO QAM Atenolol (Tenormin), 50 MG PO QAM Baclofen (Lioresal), 5 MG PO TID PRN for UNDECIDED Ergocalciferol (Vitamin D 40918 Unit), 1 CAP PO WK Ferrous Sulfate (Iron), 325 MG PO BIDM Fish Oil ([place]-3), 3 CAP PO QAM Furosemide (Lasix), 40 MG PO Q2D Ipratropium-Albuterol (Duoneb), 1 TREATMENT INH QID Lisinopril (Zestril), 5 MG PO QAM Metformin HCl (Metformin HCl), 500 MG PO BID Pantoprazole (Protonix), 40 MG PO BID Potassium Chloride (Micro-K Ext Rel), 10 MEQ PO Q2D Prednisone Tab (Prednisone), 10 MG PO DIRECTED Sildenafil Citrate (Pulmonary (Sildenafil Citrate), 10 MG PO TID Simvastatin (Zocor), 20 MG PO QPM Tiotropium Salix (Spiriva Respimat), 2 PUFF INH DAILY Tiotropium Salix-Olodaterol (Stiolto Respimat 2.5-2.5 Mcg/Act), 2 PUFF PO DAILY Review of Systems Constitutional: No fever, No chills, No sweats, No weakness, No fatigue Eyes: No worsening of vision, No eye pain ENT: No hearing loss, No unusual epistaxis, No nasal symptoms, No sore throat, No trouble swallowing Respiratory: No cough, No sputum, No wheezing, No shortness of breath, No dyspnea on exertion, No dyspnea at rest, No hemoptysis, No problem reported Cardiovascular: + chest pain, No edema, No palpitations Abdomen: No pain, No nausea, No vomiting, No diarrhea, No constipation, No problem reported Musculoskeletal: No swelling Genitourinary - Male: No dysuria Neurologic: No paralysis, No weakness, No numbness/tingling Physical Exam Vital Signs (24 Hours) Date Time Temp Pulse Resp B/P (MAP) Pulse Ox O2 Delivery O2 Flow Rate FiO2 12/28/16 12:12 36.4 80 19 121/79 (93) 92 Nasal Cannula 2.0 12/28/16 12:00 98 Nasal Cannula 2.0 12/28/16 11:20 66 18 91 Nasal Cannula 3.0 12/28/16 08:00 98 Nasal Cannula 2.0 12/28/16 07:59 36.8 66 19 127/57 (80) 98 Nasal Cannula 3.0 12/28/16 07:22 66 18 90 Nasal Cannula 3.0 12/28/16 04:00 Room Air 3.0 12/28/16 03:13 37.3 114 20 107/59 (75) 95 Nasal Cannula 3.0 12/28/16 00:01 95 Room Air 3.0 12/27/16 23:46 37.0 71 20 112/63 (79) 92 Nasal Cannula 3.0 12/27/16 20:00 95 Room Air 3.0 12/27/16 18:44 37.1 62 22 110/64 (79) 95 Nasal Cannula 3.0 12/27/16 16:15 58 18 95 Nasal Cannula 3.0 12/27/16 16:00 95 Room Air 3.0 12/27/16 15:39 36.7 61 18 109/54 (72) 95 Room Air 12/27/16 13:55 36.5 91 18 103/69 95 Nasal Cannula 3.0 12/27/16 13:34 67 18 131/77 96 12/27/16 13:01 64 18 139/100 96 Room Air General Appearance: WD/WN, + mild distress (While laying down initially, developed chest pain. Sat up, took 2 inhales from his inhaler, and said pain was improving.) Head: normocephalic, atraumatic ENT: hearing grossly normal Neck: supple, no JVD, no carotid bruits, trachea midline Respiratory/Chest: chest non-tender, lungs clear, normal breath sounds, no respiratory distress, no accessory muscle use Cardiovascular: regular rate, rhythm, no edema, no gallop, no JVD, no murmur, normal peripheral pulses Abdomen/GI: normal bowel sounds, non tender, soft, no organomegaly, no pulsatile mass Back: no CVA tenderness Extremities/Musculoskelatal: normal inspection, no calf tenderness, non-tender , + pedal edema (mild pitting edema, about [address] the anterior santiago) Neurologic/Psych: alert, normal mood/affect Diagnostics Laboratory Results Results Past 24 Hours Test 12/27/16 16:13 12/27/16 16:29 12/27/16 19:57 12/27/16 20:01 Range/Units Bedside Glucose 175 122 70-99 mg/dl Troponin I < 0.015 < 0.015 0-0.045 ng/ml Test 12/27/16 22:02 12/28/16 06:44 12/28/16 07:13 12/28/16 11:11 Range/Units Troponin I < 0.015 0-0.045 ng/ml White Blood Count 11.10 4.8-10.8 K/uL Red Blood Count 3.41 4.7-6.1 M/uL Hemoglobin 9.1 14.0-18.0 g/dL Hematocrit 29.7 42-52 % Mean Corpuscular Volume 87.1 80-100 fL Mean Corpuscular Hemoglobin 26.7 25-34 pg Mean Corpuscular Hemoglobin Concent 30.6 32-36 g/dl RDW Standard Deviation 54.9 36.4-46.3 fL RDW Coefficient of Variation 17.3 11.5-14.5 % Platelet Count 241 130-400 K/uL Mean Platelet Volume 9.5 7.4-10.4 fL Sodium Level 139 136-145 mmol/L Potassium Level 5.1 3.5-5.1 mmol/L Chloride Level 106 98-107 mmol/L Carbon Dioxide Level 24 21-32 mmol/L Anion Gap 8.0 3-11 mmol/L Blood Urea Nitrogen 38 7-18 mg/dl Creatinine 1.41 0.60-1.40 mg/dl Est Creatinine Clear Calc Drug Dose 57.5 ml/min Estimated GFR () 57.7 Estimated GFR (Non- 49.8 BUN/Creatinine Ratio 26.7 10-20 Random Glucose 127 70-99 mg/dl Calcium Level 8.7 8.5-10.1 mg/dl Hepatitis C Antibody Screen NEG NEG Bedside Glucose 139 121 70-99 mg/dl Diagnostic Radiology CHEST ONE VIEW PORTABLE CLINICAL HISTORY: CHEST PAIN dyspnea COMPARISON STUDY: 06/20/2016 FINDINGS: Moderate stable cardiomegaly. Bibasilar parenchymal infiltrates versus components of early congestive failure. The upper lungs are clear. No evidence of pneumothorax. IMPRESSION: Bibasilar parenchymal infiltrates versus developing components of congestive failure The above report was generated using voice recognition software. It may contain grammatical, syntax or spelling errors. Electronically signed by: Harris Salvador M.D. 12/27/2016 10:33 AM Impression Assessment and Plan Mr. Julio is a 71 yo male with medical history notable for bladder cancer s/p bladder removal, diabetes, previous [place] in s/p 3 stent placement, hyperlipidemia, and CKD3 who presented for atypical, non-exertional chest pain. EKG notable for ST depression during one episode, but changes and pain resolved with Nitro SL. Otherwise, Troponin, CKMB and EKG findings negative. CXR normal. He was given Maalox and this improved his symptoms. Chest pain: Likely GI etiology. He was previous on PPI therapy outpatient, but the patient seems unaware of what meds he is on and if he has been taking them all. There may be non-compliance issue therefore. Currently on Pantoprazole 40mg BID PO and Maalox as needed. These seem to be managing his symptoms well. Plan: Responding to GI meds, continue GI meds. Will need thorough education on his meds and which ones to take and why prior to discharge. Otherwise, continue regular medications upon discharge. Hyperlipidemia: Manage outpatient Plan: may continue Simvastatin 20mg PO daily Hypertension: Normotensive, asymptomatic. Plan: Continue Amlodipine 10mg PO daily, Aspirin 325mg PO daily, Atenolol 50 mg PO daily, Furosemide 40mg PO every other day, Lisinopril 5mg PO daily. Pulmonary hypertension: May be a factor in his chest pain, as his pain is further relieved by taking inhaler therapy. Plan: Continue Spiriva 2 puffs daily, Sildenafil 10mg PO TID and DuoNeb 1 puff as needed Diabetes: 115-135 range, asymptomatic. Plan: Continue Metformin 500mg PO BID, Low carb diet, heart healthy diet. Health Maintenance: No changes. Plan: May resume Vit C & D, Potassium Chloride, Jay[place]-3, Iron supplements. Level of Care Telemetry Advanced Directives Existing Living Will: No Existing Power of Casino Dealer: No
[2016-12-28] MEDS ORDERED: NTRSLP4 SL (14:29)
[2016-12-28] MEDS ORDERED: ALUMSUS2 PO (14:56)
[2016-12-28] MEDS ORDERED: ASPEC81 PO (14:56)
--- NOTE | 2016-12-28 14:56 | Discharge Instructions ---
Discharge Instructions Date of Service Dec 28, 2016. Admission Reason for Admission: Substernal Chest Pain Discharge Discharge Diagnosis / Problem: chest pain - appearing to be most consistent with indigestion Discharge Goals Goal(s): Diagnostic testing, Therapeutic intervention Activity Recommendations Activity Limitations: resume your previous activity . Instructions / Follow-Up Instructions / Follow-Up chest pain -due to your EKGs appearing reassuring and your cardiac enzymes being negative ( troponin, a lab test that measures damage to heart wall), it is exceedingly unlikely that the discomfort you were feeling was angina -due to how well the symptoms responded to maalox and lidocaine, it's very very likely that you were experiencing acid indigestion. this is one of the most common problems we see that mimics heart related pain -we'll reduce your aspirin from 325mg down to 81mg (see below) to decrease stress on your stomach -continue to take your protonix (pantoprazole) 40mg twice a day for now -- but over time, if you're doing well on the lower dose of aspirin, possibly Dr Quiñonez can reduce that dose to daily (or even reduce you from the stronger PPI medications to a more mild H2 stomach medicine like zantac) -if you have indigestion again - give a try to a dose of maalox to calm things down. of course, if the symptoms don't resolve with the maalox or you have concern, we'd always rather you come back to the hospital than stay at home with uncertainty heart disease -as above noted, fortunately things do appear stable from a heart disease standpoint at this time. the EKG changes they saw initially in the ER appear to have been due to breathing related motion when they did the EKG creating an illusion, rather than true worrisome changes -we did send a prescription for nitroglycerin tablets - this is simply because with your baseline stable coronary disease, it's the "right thing" to have you have nitro tabs for as needed, just like it's the "right thing" for you to have your albuterol rescue inhaler -there are very few conditions that truly benefit from a full strength, 325mg aspirin dose --> we'll want you to talk to Dr Quiñonez to make sure there's not a compelling reason to keep you on the higher dose, but because those conditions are few and far between, and because the higher dose of aspirin is likely at least a part of the current indigestion, we'll have you reduce to 81mg aspirin unless he notes that you have to be back on the higher dose lung disease -continue to use your inhalers regularly --use the spiriva once a day every day, as you have been --use the albuterol/ipratropium combination four times a day as best you can remember -- your nebulizer version and the combivent inhaler both have the same medication in them, so you can look at them as interchangeable. high potassium -your potassium levels here have been normal (upper limits of normal, but normal ) and your kidney numbers did suggest you were maybe a little on the dehydrated side (not badly but a little) when you were admitted. it appears Dr Quiñonez has been reducing your diuretic dosing- it's quite possible that you might need that reduced again -we'd recommend keeping the same dosing for now, but have Dr Quiñonez check follow up labwork (basic metabolic panel) in the next few days, and continue to work on changing the dosing based on how you're doing and how your labs are looking ( labs are pasted in below for your reference, i apologize for the big, ungainly table that it pastes in as) anemia -your blood counts were slightly low while here, this may be an ongoing issue for a long time, based on what we're seeing from old labs available in the computer system, but certainly is something to continue to follow if you weren't feeling any benefit from the baclofen, go ahead and stop it. as a muscle relaxant, its only benefit is if you feel like it's helping with muscle pain labs: Last 24 Hours Test 12/27/16 16:13 12/27/16 16:29 12/27/16 19:57 12/27/16 20:01 Bedside Glucose 175 mg/dl 122 mg/dl Troponin I < 0.015 ng/ml < 0.015 ng/ml Test 12/27/16 22:02 12/28/16 06:44 12/28/16 07:13 12/28/16 11:11 Troponin I < 0.015 ng/ml White Blood Count 11.10 K/uL Red Blood Count 3.41 M/uL Hemoglobin 9.1 g/dL Hematocrit 29.7 % Mean Corpuscular Volume 87.1 fL Mean Corpuscular Hemoglobin 26.7 pg Mean Corpuscular Hemoglobin Concent 30.6 g/dl RDW Standard Deviation 54.9 fL RDW Coefficient of Variation 17.3 % Platelet Count 241 K/uL Mean Platelet Volume 9.5 fL Sodium Level 139 mmol/L Potassium Level 5.1 mmol/L Chloride Level 106 mmol/L Carbon Dioxide Level 24 mmol/L Anion Gap 8.0 mmol/L Blood Urea Nitrogen 38 mg/dl Creatinine 1.41 mg/dl Est Creatinine Clear Calc Drug Dose 57.5 ml/min Estimated GFR () 57.7 Estimated GFR (Non- 49.8 BUN/Creatinine Ratio 26.7 Random Glucose 127 mg/dl Calcium Level 8.7 mg/dl Hepatitis C Antibody Screen NEG Bedside Glucose 139 mg/dl 121 mg/dl Current Hospital Diet Patient's current hospital diet: Diabetes Type 2 Diet, AHA Diet (Heart Healthy) Discharge Diet Recommended Diet: AHA Diet (Heart Healthy), Diabetes Type 2 Diet Pending Studies Studies pending at discharge: no Medical Emergencies . Who to Call and When: Medical Emergencies: If at any time you feel your situation is an emergency, please call 911 immediately. . Non-Emergent Contact Non-Emergency issues call your: Primary Care Provider, Book Repairer . . "Provider Documentation" section prepared by Reza Delgado. . VTE Core Measure Inpt VTE Proph given/why not?: Treatment not indicated
--- NOTE | 2016-12-28 15:18 | Discharge Summary ---
Discharge Summary Date of Service Dec 28, 2016. Discharge Summary Admission Date: Dec 27, 2016 at 12:45 Discharge Date: Dec 28, 2016 Discharge Disposition: Home Principal Diagnosis: chest pain - most likely indigestion related Immunizations: Have You Had Influenza Vaccine: No History of Tetanus Vaccine?: No History of Pneumococcal: No History of Hepatitis B Vaccine: No Procedures: CLINICAL HISTORY: CHEST PAIN dyspnea COMPARISON STUDY: 06/20/2016 FINDINGS: Moderate stable cardiomegaly. Bibasilar parenchymal infiltrates versus components of early congestive failure. The upper lungs are clear. No evidence of pneumothorax. IMPRESSION: Bibasilar parenchymal infiltrates versus developing components of congestive failure read by me as clear -- film was somewhat underpenetrated and off angle accentuating basilar findings, these did not correlate clinically Last 24 Hours Test 12/27/16 16:13 12/27/16 16:29 12/27/16 19:57 12/27/16 20:01 Bedside Glucose 175 mg/dl 122 mg/dl Troponin I < 0.015 ng/ml < 0.015 ng/ml Test 12/27/16 22:02 12/28/16 06:44 12/28/16 07:13 12/28/16 11:11 Troponin I < 0.015 ng/ml White Blood Count 11.10 K/uL Red Blood Count 3.41 M/uL Hemoglobin 9.1 g/dL Hematocrit 29.7 % Mean Corpuscular Volume 87.1 fL Mean Corpuscular Hemoglobin 26.7 pg Mean Corpuscular Hemoglobin Concent 30.6 g/dl RDW Standard Deviation 54.9 fL RDW Coefficient of Variation 17.3 % Platelet Count 241 K/uL Mean Platelet Volume 9.5 fL Sodium Level 139 mmol/L Potassium Level 5.1 mmol/L Chloride Level 106 mmol/L Carbon Dioxide Level 24 mmol/L Anion Gap 8.0 mmol/L Blood Urea Nitrogen 38 mg/dl Creatinine 1.41 mg/dl Est Creatinine Clear Calc Drug Dose 57.5 ml/min Estimated GFR () 57.7 Estimated GFR (Non- 49.8 BUN/Creatinine Ratio 26.7 Random Glucose 127 mg/dl Calcium Level 8.7 mg/dl Hepatitis C Antibody Screen NEG Bedside Glucose 139 mg/dl 121 mg/dl initial EKG w concern on ST depressions V5-6. on further review this was the case for only 1 heartbeat, the next beat did not have ST depressions - and the entire tracing was on a downward sloping baseline accentuating the appearance of depression. follow up EKGs with similar QRS morphology, ST-T segments without any appearance of depressions Consultations: cardiology Medication Reconciliation New Medications: Aluminum/Magnesium/Simeth (Maalox Max Susp) Susp 30 ML PO TID PRN for Indigestion, #1 BTL Aspirin (Aspirin EC Low Dose) 81 Mg Ectab 1 TAB PO DAILY, #30 TAB Nitroglycerin (Nitrostat) 0.4 Mg/1 Tab Subl 0.4 MG SL UD PRN for Chest Pain, #30 TAB Continued Medications: Albuterol Hfa (Ventolin Hfa) 200 Puffs/83412 Mcg Aers 2-4 PUFFS INH Q6H PRN for SOB/Wheezing Amlodipine (Norvasc) 10 Mg Tab 10 MG PO QAM Ascorbic Acid (Vitamin C) 100 Mg Tab 100 MG PO DAILY Atenolol (Tenormin) 50 Mg Tab 50 MG PO QAM Ergocalciferol (Vitamin D 68624 Unit) 50,000 Unit Cap 1 CAP PO WK for 28 Days, #4 CAP 5 Refills Ferrous Sulfate (Iron) 325 Mg Tab 325 MG PO BIDM Fish Oil ([place]-3) 1 Ea Cap 3 CAP PO QAM Furosemide (Lasix) 40 Mg Tab 40 MG PO Q2D, TAB Ipratropium-Albuterol (Duoneb) 3 Ml Nebu 1 TREATMENT INH QID, INHA Lisinopril (Zestril) 5 Mg Tab 5 MG PO QAM, TAB Metformin HCl (Metformin HCl) 500 Mg Tab 500 MG PO BID Pantoprazole (Protonix) 40 Mg Tab 40 MG PO BID Prednisone Tab (Prednisone) 10 Mg Tab 10 MG PO DIRECTED, TAB 4 TABS DAILY X3 DAYS THEN DECREASE BY 1/2 TAB EVERY 3 DAYS UNTIL GONE PT STARTED 12/24/16 Sildenafil Citrate (Pulmonary (Sildenafil Citrate) 20 Mg Tab 10 MG PO TID 1/2 TAB DOSAGE THREE TIMES DAILY Simvastatin (Zocor) 20 Mg Tab 20 MG PO QPM Tiotropium [place] (Spiriva Respimat) 1.25 Mcg/Act Aer 2 PUFF INH DAILY Discontinued Medications: Aspirin (Aspirin) 325 Mg Ectab 325 MG PO QAM Baclofen (Lioresal) 10 Mg Tab 5 MG PO TID PRN for UNDECIDED, TAB 1/2 TAB DOSAGE Potassium Chloride (Micro-K Ext Rel) 10 Meq Capcr 10 MEQ PO Q2D, CAP Tiotropium [place]-Olodaterol (Stiolto Respimat 2.5-2.5 Mcg/Act) 1 Aer Aer 2 PUFF PO DAILY Discharge Exam Physical Exam: General Appearance: no apparent distress ENT: hearing grossly normal Respiratory/Chest: no respiratory distress, no accessory muscle use Neurologic/Psychiatric: powder compounder II-XII nml as tested, alert Skin: normal color, warm/dry Hospital Course chest pain -initially concerned on CAD/ACS -- enzymes negative and sx resolved entirely and immediately after maalox + lidocaine - making indigestion highly likely -safe for home -reduced asa from 325mg to 81mg given that his indigestion could in part be from asa, and no clear need for higher dosing (d/w pt - and he's to d/w PCP if there is a reason specific to him to be on higher dosing, but since indigestion was cause for admission, for now at least will reduce to 81mg, and can raise back to 325mg if needed -- or keep at 81mg if no clear reason evident) chronic lung disease -reviewed inhalers with pt and tried to "clean up" med list for him -appears to be on spiriva daily and albuterol/ipratropium QID (either via neb or combivent) -continue PDE (revatio) hyperkalemia/dehydration/lasix usage -notes that his PCP has been giving him kayexalate to manage high K - K has been 5.0-5.1 here - did not change med regimen for now, but asked that PCP continue to follow this closely and wean back on lasix if at all possible, continue to follow and manage K. again while CXR suggestive of congestive change clinically this did not appear to be the case anemia -outpatient follow up Total Time Spent: Greater than 30 minutes This includes examination of the patient, discharge planning, medication reconciliation, and communication with other providers. Discharge Instructions Please refer to the electronic Patient Visit Report (Discharge Instructions) for additional information. Additional Copies To Harris Quiñonez M.D.; Dane Hair, [place]
== END 2016-12-28 15:56 | disposition home or self-care (01) ==
LOC: C.EDB 09:33 → C.2T 12:45 → ENRESERV 13:11
PROVIDERS: ADMIT Family Medicine; ATTEND Family Medicine
DX: R07.89 Other chest pain (principal); I25.10 Atherosclerotic heart disease of native coronary artery without angina pectoris; I25.2 Old myocardial infarction; I51.7 Cardiomegaly; E11.22 Type 2 diabetes mellitus with diabetic chronic kidney disease; I12.9 Hypertensive chronic kidney disease with stage 1 through stage 4 chronic kidney disease, or unspecified chronic kidney disease; N18.3 Chronic kidney disease, stage 3 (moderate); E78.5 Hyperlipidemia, unspecified; I27.20 Pulmonary hypertension, unspecified; J84.10 Pulmonary fibrosis, unspecified; J44.9 Chronic obstructive pulmonary disease, unspecified; E87.5 Hyperkalemia; D64.9 Anemia, unspecified; Z85.51 Personal history of malignant neoplasm of bladder; Z87.891 Personal history of nicotine dependence; Z79.82 Long term (current) use of aspirin; Z79.84 Long term (current) use of oral hypoglycemic drugs; Z79.899 Other long term (current) drug therapy; Z99.81 Dependence on supplemental oxygen; Z93.6 Other artificial openings of urinary tract status; Z95.5 Presence of coronary angioplasty implant and graft

== ENCOUNTER → 2016-12-27 | Outpatient (CLI) | payer OTHER ==
[~2016-12-27] MED LIST changes: +ASCO100T PO; -ASCO100T4 PO
--- NOTE | 2016-12-27 08:29 | DIAGNOSTIC IMAGING REPORT ---
(CHEST) THORAX WITHOUT CT DOSE: 602.51 mGycm HISTORY: Emphysematous change 44.9 Chronic obstructive pulmonary [id number] Chest painR06.02 TECHNIQUE: Multiaxial CT images of the chest were performed without contrast. A dose lowering technique was utilized adhering to the principles of ALARA. COMPARISON: 03/07/2016 FINDINGS: Generally improved exam compared to the prior study. Moderate residual emphysematous change. Mild apical chronic interstitial and pleural reactive change. Aeration of both lung bases is improved. There is mild dependent basilar atelectasis combined with mild bronchiectasis. It is similar. Pleural thickening over the lung bases is similar as well. Findings of mild stable cardiomegaly. Calcification of the coronary arterial vasculature is similar. There is no significant hilar or mediastinal adenopathy. IMPRESSION: 1. Improved exam compared to the prior study. 2. The diffuse interstitial and peribronchial thickening described in the prior study has resolved. 3. Mild residual Baseline emphysematous change with mild chronic basilar fibrotic change. The above report was generated using voice recognition software. It may contain grammatical, syntax or spelling errors. Electronically signed by: Harris Salvador M.D. 12/27/2016 8:27 AM Dictated Date/Time: 12/27/2016 8:24 AM
== END | disposition home or self-care (01) ==
LOC: C.CTS 08:05
PROVIDERS: ATTEND Physician Assistant
DX: R07.9 Chest pain, unspecified (principal); J44.9 Chronic obstructive pulmonary disease, unspecified; R09.02 Hypoxemia; R91.1 Solitary pulmonary nodule; R06.02 Shortness of breath

== ENCOUNTER → 2017-01-29 | Outpatient (CLI) | payer OTHER ==
[~2017-01-29] MED LIST changes: +ALUMSUS2 PO; +ASCO100T4 PO; -ASPEC325 PO; +ASPEC81 PO; -IPRA1AER2 NEB; +IPRASOL4 INH; +NTRSLP4 SL; -POTA10CA28 PO; +PRED10TA PO; +SILD1TAB19 PO; -TIOT1AER PO
[2017-01-29 15:50] LABS: BLOOD UREA NITROGEN 20 mg/dl (7-18); BUN/CREATININE RATIO 15.3 (10-20); CALCIUM 9.3 mg/dl (8.5-10.1); CARBON DIOXIDE 24 mmol/L (21-32); CHLORIDE 106 mmol/L (98-107); CREATININE 1.28 mg/dl (0.60-1.40); GLUCOSE 128 mg/dl (70-99); MAGNESIUM 2.1 mg/dl (1.8-2.4); POTASSIUM 4.5 mmol/L (3.5-5.1); SODIUM 141 mmol/L (136-145)
[2017-01-29 15:56] LABS: FERRITIN 40.6 ng/ml (8.0-388.0); PHOSPHORUS 4.3 mg/dl (2.5-4.9); TOTAL IRON BINDING CAPACITY 347 mcg/dl (250-450)
[2017-01-29 16:22] LABS: ANISOCYTOSIS PRESENT; BASO % 0.4 %; BASO ABS # 0.03 K/uL (0-0.2); COMPLETE YES; EOS % 1.5 %; HEMATOCRIT 32.8 % (42-52); IG% 0.5 %; LYMPH % 8.4 %; LYMPH ABS # 0.67 K/uL (1.2-3.4); MEAN CELL VOLUME 95.3 fL (80-100); MEAN CORPUSCULAR HEMOGLOBIN 27.6 pg (25-34); MEAN PLATELET VOLUME 9.6 fL (7.4-10.4); MONO % 7.7 %; NEUT % 81.5 %; OVALOCYTES 1+; PLATELET COUNT 398 K/uL (130-400); POLYCHROMASIA 1+; RED BLOOD COUNT 3.44 M/uL (4.7-6.1); TEAR DROP CELLS 1+; WHITE BLOOD COUNT 8.02 K/uL (4.8-10.8)
== END | disposition home or self-care (01) ==
LOC: C.LAB1850 12:27
PROVIDERS: ATTEND Internal Medicine Nephrology
DX: N18.3 Chronic kidney disease, stage 3 (moderate) (principal); D64.9 Anemia, unspecified

== ENCOUNTER → 2017-04-23 | Outpatient (CLI) | payer OTHER ==
[2017-04-23 15:16] LABS: ALBUMIN 3.4 gm/dl (3.4-5.0); BLOOD UREA NITROGEN 24 mg/dl (7-18); CALCIUM 9.3 mg/dl (8.5-10.1); CARBON DIOXIDE 26 mmol/L (21-32); CREATININE 1.34 mg/dl (0.60-1.40); GLUCOSE 125 mg/dl (70-99); PHOSPHORUS 3.9 mg/dl (2.5-4.9); SODIUM 140 mmol/L (136-145)
== END | disposition home or self-care (01) ==
LOC: C.LAB1850 12:55
PROVIDERS: ATTEND Internal Medicine Nephrology
DX: N18.3 Chronic kidney disease, stage 3 (moderate) (principal)

== ENCOUNTER → 2017-06-28 | Outpatient (CLI) | payer OTHER ==
[~2017-06-28] MED LIST changes: -ASPEC81 PO; +ASPI-320 PO
[2017-06-28 14:37] LABS: BASO % 0.3 %; BASO ABS # 0.03 K/uL (0-0.2); EOS % 1.9 %; EOS ABS # 0.17 K/uL (0-0.5); HEMATOCRIT 43.1 % (42-52); HEMOGLOBIN 13.9 g/dL (14.0-18.0); IG# 0.03 K/uL (0.00-0.02); LYMPH % 11.6 %; LYMPH ABS # 1.05 K/uL (1.2-3.4); MEAN CELL VOLUME 97.3 fL (80-100); MEAN CORPUSCULAR HEMOGLOBIN 31.4 pg (25-34); MEAN CORPUSCULAR HGB CONC 32.3 g/dl (32-36); MEAN PLATELET VOLUME 10.3 fL (7.4-10.4); MONO % 7.2 %; MONO ABS # 0.65 K/uL (0.11-0.59); NEUT % 78.7 %; NEUT ABS # 7.15 K/uL (1.4-6.5); PLATELET COUNT 254 K/uL (130-400); RED CELL DISTRIBUTION WIDTH CV 13.7 % (11.5-14.5); RED CELL DISTRIBUTION WIDTH SD 48.8 fL (36.4-46.3); WHITE BLOOD COUNT 9.08 K/uL (4.8-10.8)
[2017-06-28 15:05] LABS: ALBUMIN 3.4 gm/dl (3.4-5.0); BLOOD UREA NITROGEN 19 mg/dl (7-18); CALCIUM 9.1 mg/dl (8.5-10.1); CARBON DIOXIDE 26 mmol/L (21-32); GLUCOSE 113 mg/dl (70-99); POTASSIUM 3.9 mmol/L (3.5-5.1); SODIUM 140 mmol/L (136-145)
[2017-06-28 15:10] LABS: PHOSPHORUS 3.1 mg/dl (2.5-4.9); TRANSFERRIN 295 mg/dl (200-360)
== END | disposition home or self-care (01) ==
LOC: C.LAB1850 13:02
PROVIDERS: ATTEND Internal Medicine Nephrology
DX: N18.3 Chronic kidney disease, stage 3 (moderate) (principal); D64.9 Anemia, unspecified; N25.81 Secondary hyperparathyroidism of renal origin